=== PATIENT | female | born 1940 | race Caucasian/White ===

== ENCOUNTER 2017-08-11 20:28 | Inpatient (IN) | payer MEDICARE ==
[2017-08-12] MEDS: ALPRAZolam 0.5 MG TAB PO PRN ×3 (01:07→21:22)
[2017-08-12] MEDS: MELATONIN 3 MG TABLET PO SCH ×2 (01:07→21:31)
[2017-08-12] MEDS: methylPREDNISolone SOD SUCCI 125 MG/2 ML VIAL IV SCH ×4 (01:08→23:51)
[2017-08-12] MEDS: IPRATROPIUM-ALBUTEROL 3 ML NEB INHALATION SCH ×6 (01:16→23:07)
[2017-08-12] MEDS: ACETAMINOPHEN TAB 325 MG TAB PO PRN (03:35)
[2017-08-12] MEDS: IPRATROPIUM-ALBUTEROL 3 ML NEB INHALATION PRN (04:48)
[2017-08-12] MEDS: FUROSEMIDE 20 MG TAB PO SCH ×2 (07:56→14:58)
[2017-08-12] MEDS: AZITHROMYCIN 500 MG in SODIUM CHLORIDE 0.9% 250 ML IVPB SCH (07:56)
[2017-08-12 11:41] LABS: Basophils % (A) 0 %; Eosinophils % (A) 0 %; HCT 43.4 % (34.0-46.0); HGB 12.6 gm/dL (11.4-16.0); Hypochromasia Marked; Lymphocytes # (A) 0.3 k/uL (1.0-4.8); Lymphocytes % (A) 3 %; MCH 26.7 pg (25.0-35.0); MCHC 29.1 g/dL (31.0-37.0); MCV 91.8 fL (80.0-100.0); Mean Platelet Volume 7.1; Monocytes # (A) 0.4 k/uL (0-1.0); Monocytes % (A) 4 %; Neutrophils # (A) 10.9 k/uL (1.3-7.7); Neutrophils % (A) 93 %; Platelet Count 286 k/uL (150-450); RBC 4.73 m/uL (3.80-5.40); RDW 12.3 % (11.5-15.5); WBC 11.7 k/uL (3.8-10.6)
[2017-08-12 11:51] LABS: ALT 23 U/L (9-52); AST 18 U/L (14-36); Albumin 3.2 g/dL (3.5-5.0); Alkaline Phosphatase 70 U/L (38-126); Anion Gap 11 mmol/L; Blood Urea Nitrogen 26 mg/dL (7-17); Calcium 8.8 mg/dL (8.4-10.2); Carbon Dioxide 32 mmol/L (22-30); Chloride 98 mmol/L (98-107); Glucose 288 mg/dL (74-99); Potassium 4.2 mmol/L (3.5-5.1); Sodium 141 mmol/L (137-145); Total Bilirubin 0.3 mg/dL (0.2-1.3); Total Protein 5.8 g/dL (6.3-8.2)
[2017-08-12] MEDS: cefTRIAXone IN SWFI 1,000 MG/10 ML SYRINGE IVP SCH (16:28)
--- NOTE | 2017-08-12 16:34 | HP ---
HISTORY AND PHYSICAL DATE OF SERVICE: 08/12/2017. CHIEF COMPLAINT: Chief complaint was difficulty breathing and left arm pain. BRIEF HISTORY: This patient is a 76-year-old female patient with history of severe COPD with previous history of tuberculosis with biapical pulmonary fibrosis, history of CHF, and dementia who presented to [facility] ED with a complaint of difficulty breathing which started about a week ago, but for the past 3 days prior to coming to the ED, she started getting progressively worse. The patient also started having some pain in the left hand. There is no history of injury or falls. The patient denied any fever or chills. She claimed that she felt more short of breath compared to her baseline. She usually uses 2 L of oxygen at home but had been needing 3 to 5 L for the past few days because of shortness of breath. She did use her aerosol treatments at home more frequently, but was not giving her relief. The patient had called her PCP and was prescribed a Z-José Miguel and tapering dose of prednisone about 48 hours prior to coming to the hospital. Patient had not picked it up yet. PAST MEDICAL HISTORY: She has a past medical history significant for: 1. 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 2. Stage IV severe COPD. 3. History of nicotine dependence and tobacco abuse. 4. History of tuberculosis with biapical pulmonary fibrosis. 5. CHF. 6. Dementia. PAST SURGICAL HISTORY: Significant for polypectomy for polyps on throat. FAMILY HISTORY: Significant for a history of diabetes and hypertension in maternal family. Father is and had history of TB. SOCIAL HISTORY: Patient lives with his family. Has a 60 pack-year history of smoking. Continues to smoke. She denies history of alcohol or drug abuse. MEDICATIONS: The patient takes: 1. Melatonin 3 mg p.o. q.h.s. 2. Magnesium oxide 400 mg p.o. daily. 3. DuoNeb. 4. Lasix 20 mg b.i.d. 5. Aricept 5 mg q.h.s. 6. Xanax 0.5 mg p.o. t.i.d. 7. Tylenol 650 mg q.6 hours p.r.n. ALLERGIES: She has no known drug allergies. REVIEW OF SYSTEMS: CONSTITUTIONAL: Patient denies any fever or chills. There has been increased weakness and fatigue. HEENT: No vision changes. No hearing loss. No sore throat. RESPIRATORY SYSTEM: Does give history of difficulty breathing and shortness of breath as per HPI. CARDIAC: Patient does give history of occasional chest pain. GASTROINTESTINAL: Patient denies any nausea, vomiting or diarrhea. No constipation. GENITOURINARY: No dysuria or hematuria. MUSCULOSKELETAL: No acute muscle aches. SKIN: No rashes or pigmentation. NEUROLOGICAL SYSTEM: Denies dizziness, lightheadedness, or migraine headaches. PSYCHOLOGICAL: No suicidal or homicidal ideation. ENDOCRINE: No polyuria or polydipsia. LYMPHATIC SYSTEM: No lymphadenopathy. Rest of 14-point review of system is unremarkable. PHYSICAL EXAMINATION: The patient is in mild respiratory distress, especially when she tries to talk to me. VITAL SIGNS: At the time of presenting to the ED, temperature was 97.3, pulse 91, respiration 28, O2 saturation 100% on 3 L. Blood pressure 109/66. HEENT: Atraumatic, normocephalic. Pupils equal and reactive to light. Extraocular movements intact. Buccal mucosa is fair. NECK: Supple. No goiter or lymphadenopathy. JVD is negative. No carotid bruit heard. LUNGS: Diffuse bilateral wheezing with decreased breath sounds and scattered rhonchi and some accessory muscle use. CARDIOVASCULAR SYSTEM: Patient's heart is regular rate and rhythm without any murmurs or gallop rhythm. ABDOMEN/GI: Abdomen is soft, nontender, nondistended. No guarding or rigidity. Bowel sounds positive. GENITOURINARY: Deferred. EXTREMITIES: No edema, clubbing, cyanosis. Patient has full range of motion. NEUROLOGICAL EXAMINATION: Patient is awake, alert, oriented x3. She has no gross motor or sensory deficit. Moves all 4 extremities. MUSCULOSKELETAL: Patient has no swelling or effusions of the joints and no muscle deformities. Patient moves all 4 extremities. Skin is without rashes or pigmentation. PSYCHOLOGICAL EXAM: The patient has normal affect and mood. LABS AND X-RAY DATA: EKG shows a sinus rhythm with atrial premature complexes, slight atrial enlargement. Chest x-ray shows chronic with bilateral infiltrate. Labs: CBC white blood count of 9.8, hemoglobin 15.1, hematocrit 50.8, and platelet count of 278. Influenza A and B are negative. BNP of 684. Troponin 0.05. Lactic acid of 1.3. Chemical profile sodium 142, potassium 4.0, chloride 93, bicarb 44, BUN of 21, creatinine 0.7. Glucose 102. Liver enzymes, AST, ALT are unremarkable. ASSESSMENT: 1. Acute hypoxemic respiratory failure. 2. Severe acute exacerbation chronic obstructive pulmonary disease. 3. Community-acquired pneumonia. PLAN: Plan is to admit the patient to general medical floor with telemetry. We will start patient on IV Solu-Medrol, nebulizer treatments with DuoNeb q.4 while awake. Start patient on IV Zithromax and Rocephin 1 gram daily. Will monitor cardiac enzymes. O2 of 2 L per nasal cannula. The patient's influenza A and B are negative. The patient does show some clinical improvement. Will consult Pulmonary. The patient worsens, we will give symptomatic treatment for pneumonia. Resume all home medications. ABGs if breathing status worsens and also blood culture and sputum cultures, will rule out for atypical organisms. DVT prophylaxis with subcu heparin and SCDs. MMTUCKER / PAYTONN: [id number] /
[2017-08-12 17:11] LABS: Basophils % (A) 0 %; Eosinophils % (A) 0 %; HGB 13.7 gm/dL (11.4-16.0); Hypochromasia Marked; Lymphocytes # (A) 0.6 k/uL (1.0-4.8); Lymphocytes % (A) 3 %; MCHC 29.7 g/dL (31.0-37.0); MCV 90.9 fL (80.0-100.0); Mean Platelet Volume 6.8; Monocytes # (A) 0.7 k/uL (0-1.0); Monocytes % (A) 4 %; Neutrophils # (A) 16.5 k/uL (1.3-7.7); Neutrophils % (A) 92 %; Platelet Count 300 k/uL (150-450); RBC 5.05 m/uL (3.80-5.40); RDW 12.4 % (11.5-15.5); WBC 17.8 k/uL (3.8-10.6)
[2017-08-12 17:20] LABS: Anion Gap 9 mmol/L; Blood Urea Nitrogen 26 mg/dL (7-17); Calcium 9.2 mg/dL (8.4-10.2); Carbon Dioxide 34 mmol/L (22-30); Chloride 98 mmol/L (98-107); Glucose 126 mg/dL (74-99); Potassium 4.1 mmol/L (3.5-5.1); Sodium 141 mmol/L (137-145)
[2017-08-12] MEDS: BUDESONIDE 0.5 MG/2 ML NEBU INHALATION SCH (20:26)
[2017-08-12] MEDS: FORMOTEROL FUMARATE 20 MCG/2 ML NEBU INHALATION SCH (20:26)
[2017-08-12] MEDS: DONEPEZIL 5 MG TAB PO SCH (21:31)
[2017-08-12] MEDS ORDERED: LORazepam 2 MG/ML INJ IV STA (23:35)
[2017-08-13] MEDS: IPRATROPIUM-ALBUTEROL 3 ML NEB INHALATION SCH ×5 (04:23→20:23)
[2017-08-13] MEDS: methylPREDNISolone SOD SUCCI 125 MG/2 ML VIAL IV SCH ×4 (05:36→23:30)
[2017-08-13] MEDS: MAGNESIUM OXIDE 400 MG TAB PO SCH (07:41)
[2017-08-13] MEDS: AZITHROMYCIN 500 MG in SODIUM CHLORIDE 0.9% 250 ML IVPB SCH (07:41)
[2017-08-13] MEDS: FUROSEMIDE 20 MG TAB PO SCH ×2 (07:41→15:33)
[2017-08-13] MEDS: ALPRAZolam 0.5 MG TAB PO PRN ×2 (07:41→17:59)
[2017-08-13] MEDS: cefTRIAXone IN SWFI 1,000 MG/10 ML SYRINGE IVP SCH (07:41)
[2017-08-13] MEDS: BUDESONIDE 0.5 MG/2 ML NEBU INHALATION SCH ×2 (08:53→20:23)
[2017-08-13] MEDS: FORMOTEROL FUMARATE 20 MCG/2 ML NEBU INHALATION SCH ×2 (08:54→20:23)
--- NOTE | 2017-08-13 20:30 | PN ---
PROGRESS NOTE DATE OF SERVICE: 08/13/2017 The patient is sitting up in bed. She claims her breathing is a lot better than yesterday. VITAL SIGNS: Temperature of 98, pulse of 119, respirations 24, blood pressure 121/50, O2 saturation 97% on 3.5 L. HEENT: Atraumatic, normocephalic. Pupils equal, round and reactive to light. Extraocular movements intact. Buccal mucosa is fair. Neck is supple. No goiter, lymphadenopathy. JVD is negative. No carotid bruit heard. Lungs markedly decreased breath sounds with scattered wheezing and rhonchi. Heart is tachycardic, regular rhythm. Abdomen is soft, nontender, nondistended. Bowel sounds positive. EXTREMITIES: No edema, clubbing or cyanosis. NEUROLOGICAL EXAMINATION: Cranial nerves 2-12 grossly intact. No gross motor or sensory deficit. LAB: CBC: White blood count 17.8, hemoglobin 10.7, hematocrit 46, and platelet count of 300. Chemical profile: Sodium 141, potassium 4.1, chloride 98, bicarb 34, BUN 26, creatinine 0.8. ASSESSMENT: 1. Acute hypoxemic respiratory failure. 2. Severe acute exacerbation of chronic obstructive pulmonary disease. 3. Community-acquired pneumonia. 4. Leukocytosis. 5. Mild renal injury. PLAN: Continue the patient on IV steroids, IV Zithromax and Rocephin. Continue nebulizer treatments with steroids and with bronchodilators. The patient is showing signs of improvement. Sputum and blood cultures have been negative so far. We will continue current plan of care. The patient is showing slow improvement. Possible discharge in next 24 to 48 hours. MMODL / IJN: [id number] /
[2017-08-13] MEDS: DONEPEZIL 5 MG TAB PO SCH (20:49)
[2017-08-13] MEDS: MELATONIN 3 MG TABLET PO SCH (20:49)
[2017-08-14] MEDS: IPRATROPIUM-ALBUTEROL 3 ML NEB INHALATION SCH ×7 (00:12→23:24)
[2017-08-14 04:50] LABS: Mycoplasma IgM Antibody 0.39 INDEX (<=0.90)
[2017-08-14] MEDS: methylPREDNISolone SOD SUCCI 125 MG/2 ML VIAL IV SCH ×3 (06:06→17:46)
[2017-08-14 07:29] LABS: Glucose,Whole Blood 134 mg/dL (75-99)
[2017-08-14] MEDS: BUDESONIDE 0.5 MG/2 ML NEBU INHALATION SCH (07:45)
[2017-08-14] MEDS: FORMOTEROL FUMARATE 20 MCG/2 ML NEBU INHALATION SCH ×2 (07:45→20:24)
[2017-08-14] MEDS: INSULIN ASPART 100 UNIT/ML 1 ML 10 ML VIAL SQ SCH ×4 (08:14→23:05)
[2017-08-14] MEDS: cefTRIAXone IN SWFI 1,000 MG/10 ML SYRINGE IVP SCH (08:15)
[2017-08-14] MEDS: ALPRAZolam 0.5 MG TAB PO PRN ×2 (08:15→17:15)
[2017-08-14] MEDS: MAGNESIUM OXIDE 400 MG TAB PO SCH (08:16)
[2017-08-14] MEDS: FUROSEMIDE 20 MG TAB PO SCH ×2 (08:16→16:33)
[2017-08-14] MEDS: AZITHROMYCIN 500 MG in SODIUM CHLORIDE 0.9% 250 ML IVPB SCH (08:16)
[2017-08-14 09:16] LABS: Basophils % (A) 0 %; Eosinophils % (A) 0 %; HCT 45.4 % (34.0-46.0); HGB 13.2 gm/dL (11.4-16.0); Hypochromasia Moderate; Lymphocytes # (A) 0.6 k/uL (1.0-4.8); Lymphocytes % (A) 3 %; MCH 26.5 pg (25.0-35.0); MCHC 29.2 g/dL (31.0-37.0); MCV 90.8 fL (80.0-100.0); Mean Platelet Volume 6.8; Monocytes # (A) 0.7 k/uL (0-1.0); Monocytes % (A) 3 %; Neutrophils % (A) 93 %; Platelet Count 340 k/uL (150-450); RBC 4.99 m/uL (3.80-5.40); RDW 12.5 % (11.5-15.5); WBC 20.5 k/uL (3.8-10.6)
[2017-08-14 09:28] LABS: Blood Urea Nitrogen 30 mg/dL (7-17); Calcium 9.5 mg/dL (8.4-10.2); Chloride 93 mmol/L (98-107); Glucose 129 mg/dL (74-99); Potassium 4.5 mmol/L (3.5-5.1); Sodium 143 mmol/L (137-145)
[2017-08-14 09:34] LABS: Anion Gap 9 mmol/L
[2017-08-14 09:50] LABS: Carbon Dioxide 41 mmol/L (22-30)
--- NOTE | 2017-08-14 11:53 | XR ---
EXAMINATION TYPE: XR chest 2V DATE OF EXAM: 08/14/2017 COMPARISON: 08/25/2016, 07/07/2017, 08/11/2017 INDICATION: Hypoxia COPD TECHNIQUE: Frontal and lateral views of the chest are obtained. FINDINGS: The heart size is normal. The pulmonary vasculature is normal. Bilateral apical thickening with increased lung markings are through the upper lung vargas bilaterall y. This appearance is stable from June 2017. Finding is also stable from 08/11/2017. There is incre ased retrosternal airspace and slight increase in AP diameter and mild flattening the diaphragms comp atible with edematous change.. IMPRESSION: 1. Chronic bilateral upper lobe lung findings
[2017-08-14 12:02] LABS: Glucose,Whole Blood 129 mg/dL (75-99)
[2017-08-14] MEDS: NICOTINE 21MG/24HR PATCH TRANSDERM SCH (13:14)
--- NOTE | 2017-08-14 13:50 | P.CNPUL ---
History of Present Illness Consult date: 08/14/17 Reason for consult: dyspnea, cough, COPD, hypoxemia Chief complaint: Shortness of breath History of present illness: Consult dated 08/14/2017 This is a 76-year-old female with a history of COPD exacerbation. The patient was seen by the hospitalist. She apparently was transferred down from [facility]. She was here in the emergency department for a couple of days. She barely came in with a issue of severe COPD exacerbation. She has a previous history of tuberculosis biapical pulmonary fibrosis CHF dementia who presented with difficulty breathing coughing wheezing shortness of breath. No fever no chills. Bring up only small amount of phlegm. The patient was treated there in the standard fashion not getting any better and transferred down. The patient still quite short of breath. We are seeing her today, she was just ready to go for an x-ray. She appears to look like someone with emphysema. Chest x-ray showed evidence dose of COPD/emphysematous changes. There was no acute infiltrate. The patient was quite tachypneic and dyspneic. She had significant conversational dyspnea and was not a particularly good historian. Review of Systems A 12 point review of system was positive mostly for shortness of breath although she did have a component of cough minimal phlegm production chest tightness wheezing. No fever no chills. No chest pain or chest discomfort. Past Medical History Past Medical History: Heart Failure, COPD Additional Past Medical History / Comment(s): 09/[address] of lung ; COPD Stage 4 Gold; tuberculosis with biapical fibrosis/scarring History of Any Multi-Drug Resistant Organisms: None Reported Additional Past Surgical History / Comment(s): Polyps on throat removed Past Anesthesia/Blood Transfusion Reactions: No Reported Reaction Additional Psychological History / Comment(s): Patient has history of dementia, is currently oriented x 3 without confusion Smoking Status: Current every day smoker Past Alcohol Use History: None Reported Past Drug Use History: None Reported - Past Family History Mother Family Medical History: Diabetes Mellitus, Hypertension Father Additional Family Medical History / Comment(s): Father had tuberculosis, unsure if he of TB Medications and Allergies Home Medications Medication Instructions Recorded Confirmed Type ALPRAZolam [Xanax] 0.5 mg PO TID PRN 08/12/17 08/12/17 History Budesonide [Pulmicort] 0.5 mg INHALATION RT-BID 08/12/17 08/12/17 History Donepezil [Aricept] 5 mg PO HS 08/12/17 08/12/17 History Formoterol Fumarate [Perforomist] 20 mcg INHALATION RT-BID 08/12/17 08/12/17 History Furosemide [Lasix] 40 mg PO DAILY 08/12/17 08/12/17 History Ipratropium-Albuterol Nebulize 3 ml INHALATION RT-QID 08/12/17 08/12/17 History [Duoneb 0.5 mg-3 mg/3 ml Soln] Magnesium Oxide [Magnesium Oxide] 400 mg PO DAILY 08/12/17 08/12/17 History Melatonin 3 mg PO HS 08/12/17 08/12/17 History Allergies Allergy/AdvReac Type Severity Reaction Status Date / Time No Known Allergies Allergy Verified 08/12/17 11:05 Physical Exam Osteopathic Statement: *. No significant issues noted on an osteopathic structural exam other than those noted in the History and Physical/Consult. Vitals: Vital Signs Temp Pulse Pulse Resp BP Pulse Ox 08/14/17 11:24 92 08/14/17 11:13 90 08/14/17 08:06 89 08/14/17 07:56 88 08/14/17 07:55 88 08/14/17 07:45 88 08/14/17 05:54 97.0 F L 87 17 149/72 99 08/14/17 00:29 92 08/14/17 00:16 92 08/13/17 23:00 97.5 F L 108 H 17 147/70 95 08/13/17 20:43 116 H 08/13/17 20:37 116 H 08/13/17 20:24 115 H 08/13/17 17:36 102 H 08/13/17 17:22 102 H 08/13/17 15:00 98.1 F 119 H 24 121/50 93 L Intake and Output 08/13/17 08/14/17 08/14/17 22:59 06:59 14:59 Intake Total 240 Balance 240 Intake: Oral 240 Other: Voiding Method Bedside Commode # Voids 2 3 Weight 42 kg Mild to moderate respiratory distress distress, oriented 2, without audible wheezing. HEENT examination is grossly unremarkable. Mucous membranes are moist. No oral lesions. Neck supple. Full range of motion. No adenopathy thyromegaly or neck vein distention. Cardiovascular examination reveals regular rhythm rate. S1-S2 normal. No S3 or S4. No discernible murmur noted. Heart sounds are distant. Lungs reveal diffuse bilateral rhonchi and wheezes. Breath sounds are diminished. There is prolongation on forced maneuver. Abdomen soft bowel sounds are heard. No masses or tenderness. Extremities are intact. No cyanosis clubbing or edema. Skin is without rash or lesion. Neurologic examination is brief but nonfocal. Results - Laboratory Findings CBC and BMP: 08/14/17 07:54 08/14/17 07:54 Abnormal lab findings: Abnormal Labs 08/12/17 08/12/17 08/12/17 11:15 11:15 16:56 WBC 11.7 H 17.8 H MCHC 29.1 L 29.7 L Neutrophils # 10.9 H 16.5 H Lymphocytes # 0.3 L 0.6 L Chloride Carbon Dioxide 32 H BUN 26 H Glucose 288 H POC Glucose (mg/dL) Total Protein 5.8 L Albumin 3.2 L 08/12/17 08/14/17 08/14/17 16:56 07:26 07:54 WBC 20.5 H MCHC 29.2 L Neutrophils # 19.0 H Lymphocytes # 0.6 L Chloride Carbon Dioxide 34 H BUN 26 H Glucose 126 H POC Glucose (mg/dL) 134 H Total Protein Albumin 08/14/17 08/14/17 07:54 11:58 WBC MCHC Neutrophils # Lymphocytes # Chloride 93 L Carbon Dioxide 41 H* BUN 30 H Glucose 129 H POC Glucose (mg/dL) 129 H Total Protein Albumin - Diagnostic Findings Chest x-ray: image reviewed (X-rays labs and medications are reviewed.) Assessment and Plan Assessment: Assessment Hypoxemic respiratory failure secondary to COPD exacerbation History of pulmonary fibrosis History of heart failure History of dementia Previous history of pulmonary tuberculosis Chronic nicotine dependence with ongoing tobacco use Stage IV chronic lung disease Plan: Plan dated 08/14/2017 The patient's medications are reviewed. Labs are reviewed. X-ray shows only some emphysematous changes. We'll make sure that she is on a short acting beta agonist, short acting muscarinic antagonist, and inhaled corticosteroid, a long- acting beta agonist, and systemic corticosteroids. Likely also make sure she is on some sort of oral antibiotic and a nicotine patch. Additional recommendations and suggestions are forthcoming. Prognosis is poor. Time with Patient: Greater than 30
[2017-08-14 17:10] LABS: Hemoglobin A1C 5.9 % (4.0-6.0)
[2017-08-14] MEDS: IPRATROPIUM-ALBUTEROL 3 ML NEB INHALATION PRN (17:27)
[2017-08-14 17:30] LABS: Glucose,Whole Blood 183 mg/dL (75-99)
[2017-08-14] MEDS ORDERED: DILTIAZEM 5 MG/ML 5 ML VIAL IVP STA (18:49)
[2017-08-14] MEDS ORDERED: HEPARIN SODIUM,PORCINE 5,000 UNIT/ML 1 ML VIAL IV ONE (19:41)
[2017-08-14] MEDS ORDERED: HEPARIN SOD,PORK IN 0.45% NACL 25,000 UNIT in 0.45% NACL 1 500ML.BAG IV SCH (19:45)
[2017-08-14 20:13] LABS: Basophils % (A) 0 %; Eosinophils # (A) 0.1 k/uL (0-0.7); Eosinophils % (A) 0 %; HCT 46.8 % (34.0-46.0); Hypochromasia Moderate; Lymphocytes # (A) 0.4 k/uL (1.0-4.8); Lymphocytes % (A) 2 %; MCH 27.3 pg (25.0-35.0); Mean Platelet Volume 6.8; Monocytes % (A) 5 %; Neutrophils # (A) 18.5 k/uL (1.3-7.7); Neutrophils % (A) 92 %; Platelet Count 355 k/uL (150-450); RBC 5.14 m/uL (3.80-5.40); RDW 12.7 % (11.5-15.5)
[2017-08-14] MEDS: BUDESONIDE 1 MG/2 ML NEBU INHALATION SCH (20:24)
[2017-08-14 20:35] LABS: Prothrombin Time 9.7 sec (9.0-12.0)
[2017-08-14] MEDS: DILTIAZEM 125 MG in SODIUM CHLORIDE 0.9% 100 ML IV SCH (20:36)
[2017-08-14 20:37] LABS: Partial Thromboplastin Time 20.6 sec (22.0-30.0)
[2017-08-14 22:17] LABS: Glucose,Whole Blood 118 mg/dL (75-99)
[2017-08-14] MEDS: MELATONIN 3 MG TABLET PO SCH (23:01)
[2017-08-14] MEDS: LORazepam 2 MG/ML INJ IV PRN (23:01)
[2017-08-14] MEDS: DONEPEZIL 5 MG TAB PO SCH (23:01)
[2017-08-15 03:22] LABS: Basophils % (A) 0 %; Eosinophils % (A) 0 %; HCT 45.1 % (34.0-46.0); Hypochromasia Marked; Lymphocytes # (A) 0.7 k/uL (1.0-4.8); Lymphocytes % (A) 4 %; MCH 26.4 pg (25.0-35.0); MCHC 28.8 g/dL (31.0-37.0); MCV 91.5 fL (80.0-100.0); Mean Platelet Volume 6.6; Monocytes # (A) 0.8 k/uL (0-1.0); Monocytes % (A) 5 %; Neutrophils # (A) 13.8 k/uL (1.3-7.7); Neutrophils % (A) 90 %; Platelet Count 327 k/uL (150-450); RBC 4.93 m/uL (3.80-5.40); RDW 12.5 % (11.5-15.5); WBC 15.3 k/uL (3.8-10.6)
[2017-08-15] MEDS: HEPARIN SODIUM,PORCINE 5,000 UNIT/ML 1 ML VIAL IV PRN ×2 (03:47→10:41)
[2017-08-15] MEDS: AMOXIC-POT CLAV 875-125MG 1 EACH TAB PO SCH ×3 (03:53→21:12)
[2017-08-15] MEDS: methylPREDNISolone SOD SUCCI 125 MG/2 ML VIAL IV SCH ×5 (03:59→22:59)
[2017-08-15] MEDS: IPRATROPIUM-ALBUTEROL 3 ML NEB INHALATION SCH ×5 (04:22→21:16)
[2017-08-15] MEDS: DILTIAZEM 125 MG in SODIUM CHLORIDE 0.9% 100 ML IV SCH (05:58)
[2017-08-15 06:08] LABS: Glucose,Whole Blood 152 mg/dL (75-99)
[2017-08-15] MEDS: INSULIN ASPART 100 UNIT/ML 1 ML 10 ML VIAL SQ SCH ×4 (06:08→23:00)
[2017-08-15] MEDS: FORMOTEROL FUMARATE 20 MCG/2 ML NEBU INHALATION SCH ×2 (07:54→21:16)
[2017-08-15] MEDS: BUDESONIDE 1 MG/2 ML NEBU INHALATION SCH ×2 (07:55→21:16)
[2017-08-15] MEDS: NICOTINE 21MG/24HR PATCH TRANSDERM SCH (08:07)
[2017-08-15] MEDS: LORazepam 2 MG/ML INJ IV PRN (08:07)
[2017-08-15] MEDS ORDERED: AZITHROMYCIN 500 MG TAB PO SCH (09:00)
[2017-08-15] MEDS: FUROSEMIDE 20 MG TAB PO SCH ×2 (10:41→17:29)
[2017-08-15] MEDS: MAGNESIUM OXIDE 400 MG TAB PO SCH (10:41)
--- NOTE | 2017-08-15 12:05 | P.PN ---
Subjective Progress Note Date: 08/15/17 Principal diagnosis: Acute hypoxic respiratory failure secondary to COPD exacerbation Consult dated 08/14/2017 This is a 76-year-old female with a history of COPD exacerbation. The patient was seen by the hospitalist. She apparently was transferred down from [facility]. She was here in the emergency department for a couple of days. She barely came in with a issue of severe COPD exacerbation. She has a previous history of tuberculosis biapical pulmonary fibrosis CHF dementia who presented with difficulty breathing coughing wheezing shortness of breath. No fever no chills. Bring up only small amount of phlegm. The patient was treated there in the standard fashion not getting any better and transferred down. The patient still quite short of breath. We are seeing her today, she was just ready to go for an x-ray. She appears to look like someone with emphysema. Chest x-ray showed evidence dose of COPD/emphysematous changes. There was no acute infiltrate. The patient was quite tachypneic and dyspneic. She had significant conversational dyspnea and was not a particularly good historian. On 08/15/2017 patient seen again in follow-up. She remains on BiPAP with pressures at 10/5, and FiO2 of 40%. She is quite anxious at times, but for the most part she is tolerating the BiPAP fairly well. She is not able to tolerate being off of it for very long, she desaturates, becomes very tachycardic and tachypnec. She remains afebrile, hemodynamically stable. Lung sounds are positive for diminished breath sounds. She has a loose congested nonproductive cough. Today's lab work shows WBC of 15.3, hemoglobin is 13. She continues on IV steroids, Augmentin, oral Lasix, Pulmicort and Perforomist, and DuoNeb nebulized treatments. Objective - Vital Signs Vital signs: Vital Signs Temp 96.9 F L 08/15/17 08:00 Pulse 108 H 08/15/17 11:14 Resp 20 08/15/17 11:14 BP 126/67 08/15/17 11:13 Pulse Ox 99 08/15/17 11:13 Intake & Output 08/14/17 08/15/17 08/15/17 18:59 06:59 18:59 Intake Total 690 160.027 87.57 Output Total 400 500 Balance 290 -339.973 87.57 Weight 42 kg 61 kg Intake: Intake, IV Titration 250 160.027 87.57 Amount Azithromycin 500 mg In 250 Sodium Chloride 0.9% 250 ml @ 125 mls/hr IVPB DAILY JESSENIA Rx#:[id number] Diltiazem 125 mg In 93.667 Sodium Chloride 0.9% 100 ml @ 10 MG/HR 10 mls/hr IV .[id number] JESSENIA Rx#: [id number] Heparin Sod,Pork in 0.45% 66.36 87.57 NaCl 25,000 unit In 0.45 % NaCl 1 500ml.bag @ 12 UNITS/KG/HR 10.08 mls/hr IV .Q24H JESSENIA Rx#: [id number] Oral 440 Output: Urine 400 500 Other: Voiding Method Bedside Commode Bedside Commode Bedpan # Voids 3 0 # Bowel Movements 1 - Exam GENERAL EXAM: Alert, pleasant, slightly restless 76-year-old thin white female on BiPAP support, fairly comfortable HEAD: Normocephalic/atraumatic. EYES: Normal reaction of pupils, equal size. Conjunctiva pink, sclera white. NOSE: Clear with pink turbinates. THROAT: No erythema or exudates. NECK: No masses, no JVD, no thyroid enlargement, no adenopathy. CHEST: No chest wall deformity. Symmetrical expansion. LUNGS: Diminished breath sounds bilaterally, no rhonchi, or wheezes noted. CVS: Regular rate and rhythm, normal S1 and S2, no gallops, no murmurs, no rubs ABDOMEN: Soft, nontender. No hepatosplenomegaly, normal bowel sounds, no guarding or rigidity. EXTREMITIES: No clubbing, no edema, no cyanosis, 2+ pulses and upper and lower extremities. MUSCULOSKELETAL: Muscle strength and tone normal. SPINE: No scoliosis or deformity SKIN: No rashes CENTRAL NERVOUS SYSTEM: Alert and oriented -3. No focal deficits, tone is normal in all 4 extremities. PSYCHIATRIC: Alert and oriented -3. Appropriate affect. Intact judgment and insight. - Labs CBC & Chem 7: 08/15/17 02:40 08/14/17 07:54 Labs: Abnormal Lab Results - Last 24 Hours (Table) 08/14/17 08/14/17 08/14/17 Range/Units 11:58 17:27 19:53 WBC 20.0 H (3.8-10.6) k/uL Hct 46.8 H (34.0-46.0) % MCHC 30.0 L (31.0-37.0) g/dL Neutrophils # 18.5 H (1.3-7.7) k/uL Lymphocytes # 0.4 L (1.0-4.8) k/uL APTT (22.0-30.0) sec POC Glucose (mg/dL) 129 H 183 H (75-99) mg/dL 08/14/17 08/14/17 08/15/17 Range/Units 19:53 21:56 02:40 WBC 15.3 H (3.8-10.6) k/uL Hct (34.0-46.0) % MCHC 28.8 L (31.0-37.0) g/dL Neutrophils # 13.8 H (1.3-7.7) k/uL Lymphocytes # 0.7 L (1.0-4.8) k/uL APTT 20.6 L (22.0-30.0) sec POC Glucose (mg/dL) 118 H (75-99) mg/dL 08/15/17 Range/Units 06:05 WBC (3.8-10.6) k/uL Hct (34.0-46.0) % MCHC (31.0-37.0) g/dL Neutrophils # (1.3-7.7) k/uL Lymphocytes # (1.0-4.8) k/uL APTT (22.0-30.0) sec POC Glucose (mg/dL) 152 H (75-99) mg/dL Microbiology - Last 24 Hours (Table) 08/12/17 17:10 Blood Culture - Preliminary Blood No Growth after 48 hours 08/12/17 16:56 Blood Culture - Preliminary Blood No Growth after 48 hours Assessment and Plan Plan: Assessment: #1. Acute hypoxic respiratory failure secondary to COPD exacerbation #2. Chronic hypercapnic respiratory failure secondary to advanced COPD #3. History of pulmonary fibrosis #4. History of CHF, unspecified #5. History of dementia #6. History of nicotine dependence and tobacco abuse #. Previous history of pulmonary tuberculosis Plan: Continue BiPAP support, patient is not tolerating nasal cannula trials, becomes very tachypneic, and tachycardic. Continue IV steroids, continue DuoNeb, continue Pulmicort and Perforomist, continue Augmentin. I performed a history & physical examination of the patient and discussed their management with my nurse practitioner, Kimmy Evans. I reviewed the nurse practitioner's note and agree with the documented findings and plan of care. Lung sounds are positive for diminished lung sounds. The findings and the impression was discussed with the patient. I attest to the documentation by the nurse practitioner. Time with Patient: Less than 30
[2017-08-15 12:06] LABS: Glucose,Whole Blood 195 mg/dL (75-99)
[2017-08-15] MEDS: APIXABAN 2.5 MG TABLET PO SCH ×2 (12:48→21:13)
--- NOTE | 2017-08-15 14:39 | P.CRDCN ---
History of Present Illness Consult date: 08/15/17 Requesting physician: Gavi Russell Consult reason: atrial fibrillation Chief complaint: Shortness of breath and palpitations History of present illness: This is a 76-year-old female with history of severe COPD, pulmonary fibrosis, tuberculosis, congestive heart failure, nicotine dependence, dementia , who was transferred here from [facility]. According to the patient, she went to the hospital there because of progressively worsening shortness of breath. Patient also states that she's been feeling her heart racing fast and at times experiencing discomfort in her chest. She was being treated as an outpatient for a possible bronchitis or pneumonia and was initiated on Zithromax and prednisone as an outpatient. EKG performed at [facility] on admission there showed a normal sinus rhythm with PACs. Troponins there 0.029, 0.025. Lactic acid 1.3 BNP 684. White blood cell count 9.8, hemoglobin 15.1, platelet count 278. Influenza A and B were negative area sodium 142, potassium 4.0, BUN 21, creatinine 0.7. Magnesium 2.4. Blood pressure [facility] with afebrile there x-ray performed in [place] revealed chronic emphysema changes with possible infiltrates bilaterally. Initial EKG performed on arrival here shows atrial fibrillation with a rapid ventricular response, subsequent EKG persists to show atrial fibrillation. Currently in normal sinus rhythm. According to the patient she has never been told in the past to have any irregularity of heartbeat. Blood pressure here 125/60, heart rate 100, 100 % on BiPAP. Past Medical History Past Medical History: Heart Failure, COPD Additional Past Medical History / Comment(s): 09/[address] of lung ; COPD Stage 4 Gold; tuberculosis with biapical fibrosis/scarring History of Any Multi-Drug Resistant Organisms: None Reported Additional Past Surgical History / Comment(s): Polyps on throat removed Past Anesthesia/Blood Transfusion Reactions: No Reported Reaction Additional Psychological History / Comment(s): Patient has history of dementia, is currently oriented x 3 without confusion Smoking Status: Current every day smoker Past Alcohol Use History: None Reported Past Drug Use History: None Reported - Past Family History Mother Family Medical History: Diabetes Mellitus, Hypertension Father Additional Family Medical History / Comment(s): Father had tuberculosis, unsure if he of TB Medications and Allergies Home Medications Medication Instructions Recorded Confirmed Type ALPRAZolam [Xanax] 0.5 mg PO TID PRN 08/12/17 08/12/17 History Budesonide [Pulmicort] 0.5 mg INHALATION RT-BID 08/12/17 08/12/17 History Donepezil [Aricept] 5 mg PO HS 08/12/17 08/12/17 History Formoterol Fumarate [Perforomist] 20 mcg INHALATION RT-BID 08/12/17 08/12/17 History Furosemide [Lasix] 40 mg PO DAILY 08/12/17 08/12/17 History Ipratropium-Albuterol Nebulize 3 ml INHALATION RT-QID 08/12/17 08/12/17 History [Duoneb 0.5 mg-3 mg/3 ml Soln] Magnesium Oxide [Magnesium Oxide] 400 mg PO DAILY 08/12/17 08/12/17 History Melatonin 3 mg PO HS 08/12/17 08/12/17 History Allergies Allergy/AdvReac Type Severity Reaction Status Date / Time No Known Allergies Allergy Verified 08/12/17 11:05 Physical Exam Vitals: Vital Signs Temp Pulse Pulse Resp BP BP Pulse Ox 08/15/17 08:16 112 H 08/15/17 08:07 108 H 08/15/17 08:05 108 H 08/15/17 08:00 96.9 F L 103 H 22 125/60 100 08/15/17 07:59 104 H 08/15/17 04:33 110 H 08/15/17 04:26 110 H 08/15/17 03:56 107 H 32 H 131/84 08/15/17 00:00 107 H 32 H 08/14/17 23:00 77 39 H 134/70 08/14/17 17:39 116 H 08/14/17 17:27 116 H 22 08/14/17 15:30 92 08/14/17 15:20 92 20 08/14/17 15:00 97.8 F 104 H 22 163/80 97 08/14/17 11:24 92 08/14/17 11:13 90 Intake and Output 08/14/17 08/15/17 08/15/17 22:59 06:59 14:59 Intake Total 160.027 Output Total 400 500 Balance -400 -339.973 Intake: Intake, IV Titration 160.027 Amount Diltiazem 125 mg In 93.667 Sodium Chloride 0.9% 100 ml @ 10 MG/HR 10 mls/hr IV .[id number] JESSENIA Rx#: [id number] Heparin Sod,Pork in 0.45% 66.36 NaCl 25,000 unit In 0.45 % NaCl 1 500ml.bag @ 12 UNITS/KG/HR 10.08 mls/hr IV .Q24H JESSENIA Rx#: [id number] Output: Urine 400 500 Other: Voiding Method Bedside Commode Bedside Commode Bedpan # Voids 1 0 # Bowel Movements 1 Weight 42 kg 61 kg PHYSICAL EXAMINATION: HEENT: Head is atraumatic, normocephalic. Pupils equal, round. Neck is supple. There is no elevated jugular venous pressure. HEART EXAMINATION: Heart S1 and S2 irregular irregular CHEST EXAMINATION: nLungs reveal scattered coarse wheezing throughout with decreased air exchange throughout. ABDOMEN: Soft, nontender. Bowel sounds are heard. No organomegaly noted. EXTREMITIES: 2+ peripheral pulses with no evidence of peripheral edema and no calf tenderness noted. NEUROLOGIC patient is awake, alert and oriented -2. . Results 08/15/17 02:40 08/14/17 07:54 Coagulation 08/14/17 08/15/17 08/15/17 Range/Units 19:53 01:28 02:40 PT 9.7 (9.0-12.0) sec APTT 20.6 L 23.7 23.1 (22.0-30.0) sec CBC 08/14/17 08/15/17 Range/Units 19:53 02:40 WBC 20.0 H 15.3 H (3.8-10.6) k/uL RBC 5.14 4.93 (3.80-5.40) m/uL Hgb 14.0 13.0 (11.4-16.0) gm/dL Hct 46.8 H 45.1 (34.0-46.0) % Plt Count 355 327 (150-450) k/uL Current Medications Generic Name Dose Route Start Last Admin Trade Name Freq PRN Reason Stop Dose Admin Acetaminophen 650 mg 08/12/17 02:41 08/12/17 03:35 Tylenol Tab PO 650 mg Q6HR PRN Administration Fever and/ or Pain Albuterol/Ipratropium 3 ml 08/12/17 04:00 08/15/17 07:54 Duoneb 0.5 Mg-3 Mg/3 Ml Soln INHALATION 3 ml RT-Q4H JESSENIA Administration Albuterol/Ipratropium 3 ml 08/12/17 01:20 08/14/17 17:27 Duoneb 0.5 Mg-3 Mg/3 Ml Soln INHALATION 3 ml RT-Q2H PRN Administration Shortness Of Breath Or Wheezing Alprazolam 0.5 mg 08/12/17 00:51 08/14/17 17:15 Xanax PO 0.5 mg TID PRN Administration Anxiety Amoxicillin/Clavulanate Potassium 1 each 08/14/17 21:00 08/15/17 03:53 Augmentin 875-125 PO 1 each Q12HR JESSENIA Administration Budesonide 1 mg 08/14/17 20:00 08/15/17 07:55 Pulmicort INHALATION 1 mg RT-BID JESSENIA Administration Donepezil HCl 5 mg 08/12/17 21:00 08/14/17 23:01 Aricept PO 5 mg HS JESSENIA Administration Formoterol Fumarate 20 mcg 08/12/17 20:00 08/15/17 07:54 Perforomist INHALATION 20 mcg RT-BID JESSENIA Administration Furosemide 20 mg 08/12/17 09:00 08/14/17 16:33 Lasix PO 20 mg BID@0900,1600 JESSENIA Administration Heparin Sodium (Porcine) 0 unit 08/14/17 19:41 08/15/17 03:47 Heparin IV 2,100 unit PER PROTOCOL PRN Administration Low PTT Protocol Diltiazem HCl 125 mg/ Sodium 125 mls @ 10 mls/hr 08/14/17 19:45 08/15/17 05: 58 Chloride IV 10 mg/hr .[id number] JESSENIA 10 mls/hr 10 MG/HR Administration Heparin Sodium/Sodium Chloride 500 mls @ 10.08 mls/hr 08/14/17 19:45 03:45 25,000 unit/ Sodium Chloride IV 15 units/kg/hr .Q24H JESSENIA 12.6 mls/hr Protocol Titration 12 UNITS/KG/HR Insulin Aspart 0 unit 08/14/17 07:30 08/15/17 06:08 Novolog SQ 2 unit ACHS JESSENIA Administration Protocol Lorazepam 0.5 mg 08/13/17 19:13 08/15/17 08:07 Ativan IV 0.5 mg DAILY PRN Administration Anxiety Magnesium Oxide 400 mg 08/13/17 09:00 08/14/17 08:16 Mag-Ox PO 400 mg DAILY JESSENIA Administration Melatonin 3 mg 08/12/17 01:00 08/14/17 23:01 Melatonin PO 3 mg HS JESSENIA Administration Methylprednisolone Sodium Succinate 60 mg 08/13/17 00:00 08/15/17 06:08 Solu-Medrol IV 60 mg Q6HR JESSENIA Administration Nicotine 1 patch 08/14/17 12:30 08/15/17 08:07 Habitrol 21mg/24hr Patch TRANSDERM 1 patch DAILY JESSENIA Administration Intake and Output 08/14/17 08/15/17 08/15/17 22:59 06:59 14:59 Intake Total 160.027 Output Total 400 500 Balance -400 -339.973 Intake: Intake, IV Titration 160.027 Amount Diltiazem 125 mg In 93.667 Sodium Chloride 0.9% 100 ml @ 10 MG/HR 10 mls/hr IV .[id number] JESSENIA Rx#: [id number] Heparin Sod,Pork in 0.45% 66.36 NaCl 25,000 unit In 0.45 % NaCl 1 500ml.bag @ 12 UNITS/KG/HR 10.08 mls/hr IV .Q24H JESSENIA Rx#: [id number] Output: Urine 400 500 Other: Voiding Method Bedside Commode Bedside Commode Bedpan # Voids 1 0 # Bowel Movements 1 Weight 42 kg 61 kg 08/15/17 02:40 08/14/17 07:54 EKG Interpretations (text) EKG shows atrial fibrillation with a rapid ventricular response Assessment and Plan Plan: Assessment and plan #1 COPD exacerbation #2 history of severe COPD #3 atrial fibrillation with rapid ventricular response, paroxysmal. Patient currently in normal sinus rhythm. #4 pulmonary fibrosis #5 history of pulmonary tuberculosis #6 nicotine dependence Plan We will obtain an echocardiogram with Doppler study. We will also start the patient on verapamil, discontinue the heparin and initiate TeleQuest 2-1/2 mg one tablet twice a day for anticoagulation. Free T4 and TSH level will also be obtained. DNP note has been reviewed, I agree with a documented findings and plan of care. Patient was seen and examined.
[2017-08-15] MEDS: VERAPAMIL 40 MG TAB PO SCH ×3 (14:50→21:13)
[2017-08-15] MEDS ORDERED: Magnesium Replacement Protocol 1 EACH MISC MISCELLANE PRN (15:38)
--- NOTE | 2017-08-15 15:40 | P.PN ---
Subjective Progress Note Date: 08/14/17 Progress note being dictated for Dr. Scanlon. Interval history: This is a 76-year-old female admitted with acute hypoxic respiratory failure, severe acute exacerbation COPD, community-acquired pneumonia and multiple other medical issues. Maintained on Rocephin, Zithromax , IV steroids, nebulized bronchodilators. Afebrile, WBC 20. Chest x-ray reporting chronic bilateral upper lobe lung findings; increased retrosternal air space and slight increase in AP diameter and mild flattening of the diaphragms compatible with edematous change.Maintaining O2 sats of 99% on 3 L nasal cannula. Harsh nonproductive cough, shallow breathing with audible wheezing. Objective - Vital Signs Vital signs: Vital Signs Temp 97.8 F 08/14/17 15:00 Pulse 116 H 08/14/17 17:39 Resp 22 08/14/17 17:27 BP 163/80 08/14/17 15:00 Pulse Ox 97 08/14/17 15:00 Intake & Output 08/14/17 08/14/17 08/15/17 06:59 18:59 06:59 Intake Total 690 Output Total 200 Balance 490 Weight 42 kg Intake: Intake, IV Titration 250 Amount Azithromycin 500 mg In 250 Sodium Chloride 0.9% 250 ml @ 125 mls/hr IVPB DAILY JESSENIA Rx#:[id number] Oral 440 Output: Urine 200 Other: Voiding Method Bedside Commode Bedside Commode # Voids 3 # Bowel Movements 1 - Exam PHYSICAL EXAM: VITAL SIGNS: As above GENERAL: Sitting up in bed, respiratory effort increased HEENT: Conjunctivae normal. eyes normal. Oral mucosa moist NECK: No JVD. No thyroid enlargement. No LNs CARDIOVASCULAR: S1, S2 muffled. No murmur RESPIRATION: Breath sounds diminished in the bases. Scattered rhonchi, crackles and expiratory wheezes throughout. ABDOMEN: Soft, nontender . No guarding. no masses palpable. Bowel sounds heard. LEGS: No edema. no swelling PSYCHIATRY: Alert and oriented -3, mood and affect normal. NERVOUS SYSTEM: Cranial N 2-12 grossly normal. Moves all 4 limbs. Diffuse weakness No focal deficits. Skin: no ulcer no rash Joints: No active swelling. No inflammation. Lymphatic system. No LN neck axilla or groin. - Labs CBC & Chem 7: 08/15/17 02:40 08/14/17 07:54 Labs: Abnormal Lab Results - Last 24 Hours (Table) 08/14/17 08/14/17 08/14/17 Range/Units 07:26 07:54 07:54 WBC 20.5 H (3.8-10.6) k/uL MCHC 29.2 L (31.0-37.0) g/dL Neutrophils # 19.0 H (1.3-7.7) k/uL Lymphocytes # 0.6 L (1.0-4.8) k/uL Chloride 93 L (98-107) mmol/L Carbon Dioxide 41 H* (22-30) mmol/L BUN 30 H (7-17) mg/dL Glucose 129 H (74-99) mg/dL POC Glucose (mg/dL) 134 H (75-99) mg/dL 08/14/17 08/14/17 Range/Units 11:58 17:27 WBC (3.8-10.6) k/uL MCHC (31.0-37.0) g/dL Neutrophils # (1.3-7.7) k/uL Lymphocytes # (1.0-4.8) k/uL Chloride (98-107) mmol/L Carbon Dioxide (22-30) mmol/L BUN (7-17) mg/dL Glucose (74-99) mg/dL POC Glucose (mg/dL) 129 H 183 H (75-99) mg/dL Microbiology - Last 24 Hours (Table) 08/12/17 16:56 Blood Culture - Preliminary Blood No Growth after 48 hours 08/12/17 17:10 Blood Culture - Preliminary Blood No Growth after 24 hours Assessment and Plan Assessment: 1. Acute hypoxic respiratory failure secondary to severe acute COPD exacerbation 2. Community-acquired pneumonia 3. Leukocytosis secondary to the above 4. History of pulmonary fibrosis 5. Ongoing nicotine abuse Plan: Continue on current medication regime ,monitoring and symptomatic treatment. Evaluated by pulmonary with recommendations appreciated. Maintain nebulized bronchodilators, steroids, antibiotics. Smoking cessation reinforced. Nicotine patch in place. Prognosis guarded given multiple complex medical issues. The impression and plan of care has been dictated as directed. : I performed a history and examination of this patient, discussed the same with the dictator. I agree with the dictator's note ,documented as a scribe. Any additional findings or plans will be noted.
[2017-08-15] MEDS ORDERED: Potassium Replacement Protocol 1 EACH MISC MISCELLANE PRN (15:57)
--- NOTE | 2017-08-15 15:57 | P.PN ---
Subjective Progress Note Date: 08/15/17 Progress note being dictated for Dr. Scanlon. Interval history: This is a 76-year-old female admitted with acute hypoxic respiratory failure, severe acute exacerbation COPD, community-acquired pneumonia and multiple other medical issues. Maintained on Rocephin, Zithromax , IV steroids, nebulized bronchodilators. Afebrile, WBC 20. Chest x-ray reporting chronic bilateral upper lobe lung findings; increased retrosternal air space and slight increase in AP diameter and mild flattening of the diaphragms compatible with edematous change. Audible wheezing, maintaining O2 sats of 99% on 3 L nasal cannula. 08/15/17 developed worsening shortness of breath, placed on BiPAP,atrial fibrillation with RVR and transferred to telemetry floor last night. Maintained on Cardizem drip. Anticoagulated on heparin drip. Telemetry reporting atrial fibrillation heart rate currently 90 to low 100s. Remains BiPAP dependent. Afebrile. Nonproductive loose cough. Unable to perform review of systems as patient BiPAP dependent Active Medications Acetaminophen (Tylenol Tab) 650 mg PO Q6HR PRN PRN Reason: Fever and/ or Pain Last Admin: 08/12/17 03:35 Dose: 650 mg Albuterol/Ipratropium (Duoneb 0.5 Mg-3 Mg/3 Ml Soln) 3 ml INHALATION RT-Q4H [facility] Last Admin: 08/15/17 10:59 Dose: 3 ml Albuterol/Ipratropium (Duoneb 0.5 Mg-3 Mg/3 Ml Soln) 3 ml INHALATION RT-Q2H PRN PRN Reason: Shortness Of Breath Or Wheezing Last Admin: 08/14/17 17:27 Dose: 3 ml Alprazolam (Xanax) 0.5 mg PO TID PRN PRN Reason: Anxiety Last Admin: 08/14/17 17:15 Dose: 0.5 mg Amoxicillin/Clavulanate Potassium (Augmentin 875-125) 1 each PO Q12HR [facility] Last Admin: 08/15/17 10:41 Dose: 1 each Apixaban (Eliquis) 2.5 mg PO BID [facility] Last Admin: 08/15/17 12:48 Dose: 2.5 mg Budesonide (Pulmicort) 1 mg INHALATION RT-BID [facility] Last Admin: 08/15/17 07:55 Dose: 1 mg Donepezil HCl (Aricept) 5 mg PO HS [facility] Last Admin: 08/14/17 23:01 Dose: 5 mg Formoterol Fumarate (Perforomist) 20 mcg INHALATION RT-BID [facility] Last Admin: 08/15/17 07:54 Dose: 20 mcg Furosemide (Lasix) 20 mg PO BID@0900,1600 [facility] Last Admin: 08/15/17 10:41 Dose: 20 mg Diltiazem HCl 125 mg/ Sodium (Chloride) 125 mls @ 10 mls/hr IV .[id number] [facility] PRN Reason: 10 MG/HR Stop: 08/15/17 16:00 Last Admin: 08/15/17 05:58 Dose: 10 mg/hr, 10 mls/hr Insulin Aspart (Novolog) 0 unit SQ ACHS [facility] PRN Reason: Protocol Last Admin: 08/15/17 14:51 Dose: 5 unit Lorazepam (Ativan) 0.5 mg IV DAILY PRN PRN Reason: Anxiety Last Admin: 08/15/17 08:07 Dose: 0.5 mg Magnesium Oxide (Mag-Ox) 400 mg PO DAILY [facility] Last Admin: 08/15/17 10:41 Dose: 400 mg Melatonin (Melatonin) 3 mg PO HS [facility] Last Admin: 08/14/17 23:01 Dose: 3 mg Methylprednisolone Sodium Succinate (Solu-Medrol) 60 mg IV Q6HR [facility] Last Admin: 08/15/17 12:44 Dose: 60 mg Miscellaneous Information (Magnesium Per Protocol) 1 each MISCELLANE DAILY PRN ; Protocol PRN Reason: Per Protocol Nicotine (Habitrol 21mg/24hr Patch) 1 patch TRANSDERM DAILY [facility] Last Admin: 08/15/17 08:07 Dose: 1 patch Verapamil HCl (Isoptin) 40 mg PO TID [facility] Last Admin: 08/15/17 14:50 Dose: 40 mg Objective - Vital Signs Vital signs: Vital Signs Temp 97.8 F 08/15/17 15:06 Pulse 98 08/15/17 15:15 Resp 24 08/15/17 15:15 BP 129/71 08/15/17 15:06 Pulse Ox 93 L 08/15/17 15:06 Intake & Output 08/14/17 08/15/17 08/15/17 18:59 06:59 18:59 Intake Total 690 160.027 87.57 Output Total 400 500 Balance 290 -339.973 87.57 Weight 42 kg 61 kg Intake: Intake, IV Titration 250 160.027 87.57 Amount Azithromycin 500 mg In 250 Sodium Chloride 0.9% 250 ml @ 125 mls/hr IVPB DAILY JESSENIA Rx#:[id number] Diltiazem 125 mg In 93.667 Sodium Chloride 0.9% 100 ml @ 10 MG/HR 10 mls/hr IV .[id number] JESSENIA Rx#: [id number] Heparin Sod,Pork in 0.45% 66.36 87.57 NaCl 25,000 unit In 0.45 % NaCl 1 500ml.bag @ 12 UNITS/KG/HR 10.08 mls/hr IV .Q24H JESSENIA Rx#: [id number] Oral 440 Output: Urine 400 500 Other: Voiding Method Bedside Commode Bedside Commode Bedpan # Voids 3 0 # Bowel Movements 1 - Exam PHYSICAL EXAM: VITAL SIGNS: As above GENERAL: Sitting up in bed, respiratory effort increased HEENT: Conjunctivae normal. eyes normal. Oral mucosa moist NECK: No JVD. No thyroid enlargement. No LNs CARDIOVASCULAR: S1, S2 muffled. Irregular, No murmur RESPIRATION: Breath sounds diminished in the bases. Scattered rhonchi, and expiratory wheezes throughout. ABDOMEN: Soft, nontender . No guarding. no masses palpable. Bowel sounds heard. LEGS: No edema. no swelling PSYCHIATRY: Alert and oriented -3, mood and affect normal. NERVOUS SYSTEM: Cranial N 2-12 grossly normal. Moves all 4 limbs. Diffuse weakness No focal deficits. Skin: no ulcer no rash Joints: No active swelling. No inflammation. Lymphatic system. No LN neck axilla or groin. - Labs CBC & Chem 7: 08/15/17 02:40 08/14/17 07:54 Labs: Abnormal Lab Results - Last 24 Hours (Table) 08/14/17 08/14/17 08/14/17 Range/Units 17:27 19:53 19:53 WBC 20.0 H (3.8-10.6) k/uL Hct 46.8 H (34.0-46.0) % MCHC 30.0 L (31.0-37.0) g/dL Neutrophils # 18.5 H (1.3-7.7) k/uL Lymphocytes # 0.4 L (1.0-4.8) k/uL APTT 20.6 L (22.0-30.0) sec POC Glucose (mg/dL) 183 H (75-99) mg/dL 08/14/17 08/15/17 08/15/17 Range/Units 21:56 02:40 06:05 WBC 15.3 H (3.8-10.6) k/uL Hct (34.0-46.0) % MCHC 28.8 L (31.0-37.0) g/dL Neutrophils # 13.8 H (1.3-7.7) k/uL Lymphocytes # 0.7 L (1.0-4.8) k/uL APTT (22.0-30.0) sec POC Glucose (mg/dL) 118 H 152 H (75-99) mg/dL 08/15/17 Range/Units 11:44 WBC (3.8-10.6) k/uL Hct (34.0-46.0) % MCHC (31.0-37.0) g/dL Neutrophils # (1.3-7.7) k/uL Lymphocytes # (1.0-4.8) k/uL APTT (22.0-30.0) sec POC Glucose (mg/dL) 195 H (75-99) mg/dL Microbiology - Last 24 Hours (Table) 08/12/17 17:10 Blood Culture - Preliminary Blood No Growth after 48 hours 08/12/17 16:56 Blood Culture - Preliminary Blood No Growth after 48 hours Assessment and Plan Assessment: 1. Acute hypoxic respiratory failure secondary to severe acute COPD exacerbation 2. Community-acquired pneumonia 3. Leukocytosis secondary to the above 4. History of pulmonary fibrosis 5. Ongoing nicotine abuse 7. Proximal A. fib with RVR, anticoagulated on Eliquis Plan: Continue on current medication regime, monitoring and symptomatic treatment. BMP and magnesium level pending. Maintain nebulized bronchodilators , steroids, antibiotics. Smoking cessation reinforced. Nicotine patch in place. Antiarrhythmics as per cardiology. Now being anticoagulated on Eliquis. Prognosis guarded given multiple complex medical issues. The impression and plan of care has been dictated as directed. : I performed a history and examination of this patient, discussed the same with the dictator. I agree with the dictator's note ,documented as a scribe. Any additional findings or plans will be noted.
[2017-08-15 16:52] LABS: Blood Urea Nitrogen 34 mg/dL (7-17); Calcium 9.3 mg/dL (8.4-10.2); Chloride 93 mmol/L (98-107); Glucose 116 mg/dL (74-99); Potassium 4.6 mmol/L (3.5-5.1); Sodium 141 mmol/L (137-145)
[2017-08-15 17:00] LABS: Anion Gap 4 mmol/L
[2017-08-15 17:05] LABS: Carbon Dioxide 44 mmol/L (22-30)
[2017-08-15 17:11] LABS: Glucose,Whole Blood 125 mg/dL (75-99)
[2017-08-15] MEDS: DONEPEZIL 5 MG TAB PO SCH (21:13)
[2017-08-15] MEDS: MELATONIN 3 MG TABLET PO SCH (21:13)
[2017-08-15 23:01] LABS: Glucose,Whole Blood 161 mg/dL (75-99)
[2017-08-16] MEDS: IPRATROPIUM-ALBUTEROL 3 ML NEB INHALATION SCH ×6 (00:13→18:52)
[2017-08-16 05:49] LABS: Glucose,Whole Blood 149 mg/dL (75-99)
[2017-08-16] MEDS: methylPREDNISolone SOD SUCCI 125 MG/2 ML VIAL IV SCH ×4 (05:59→23:57)
[2017-08-16] MEDS: INSULIN ASPART 100 UNIT/ML 1 ML 10 ML VIAL SQ SCH ×4 (06:00→23:58)
[2017-08-16 06:02] LABS: Basophils % (A) 0 %; Eosinophils # (A) 0.1 k/uL (0-0.7); Eosinophils % (A) 1 %; HCT 44.6 % (34.0-46.0); HGB 13.2 gm/dL (11.4-16.0); Hypochromasia Marked; Lymphocytes # (A) 0.5 k/uL (1.0-4.8); Lymphocytes % (A) 4 %; MCHC 29.7 g/dL (31.0-37.0); MCV 90.9 fL (80.0-100.0); Mean Platelet Volume 7.1; Monocytes # (A) 0.6 k/uL (0-1.0); Monocytes % (A) 4 %; Neutrophils % (A) 91 %; Platelet Count 308 k/uL (150-450); RDW 12.4 % (11.5-15.5); WBC 13.2 k/uL (3.8-10.6)
[2017-08-16 06:09] LABS: Blood Urea Nitrogen 40 mg/dL (7-17); Calcium 9.5 mg/dL (8.4-10.2); Chloride 91 mmol/L (98-107); Glucose 139 mg/dL (74-99); Potassium 4.8 mmol/L (3.5-5.1); Sodium 141 mmol/L (137-145)
[2017-08-16 06:16] LABS: Anion Gap 3 mmol/L
[2017-08-16 06:17] LABS: Carbon Dioxide 47 mmol/L (22-30)
[2017-08-16] MEDS: MAGNESIUM OXIDE 400 MG TAB PO SCH (08:09)
[2017-08-16] MEDS: APIXABAN 2.5 MG TABLET PO SCH ×2 (08:09→20:17)
[2017-08-16] MEDS: NICOTINE 21MG/24HR PATCH TRANSDERM SCH (08:09)
[2017-08-16] MEDS: VERAPAMIL 40 MG TAB PO SCH ×2 (08:09→17:22)
[2017-08-16] MEDS: FUROSEMIDE 20 MG TAB PO SCH ×2 (08:09→17:22)
[2017-08-16] MEDS: AMOXIC-POT CLAV 875-125MG 1 EACH TAB PO SCH ×2 (08:10→20:18)
[2017-08-16] MEDS: FORMOTEROL FUMARATE 20 MCG/2 ML NEBU INHALATION SCH ×2 (08:40→19:07)
[2017-08-16] MEDS: BUDESONIDE 1 MG/2 ML NEBU INHALATION SCH ×2 (08:40→18:53)
[2017-08-16 11:25] LABS: Glucose,Whole Blood 230 mg/dL (75-99)
--- NOTE | 2017-08-16 13:26 | P.PN ---
Subjective Progress Note Date: 08/16/17 Principal diagnosis: Acute hypoxic respiratory failure secondary to COPD exacerbation Consult dated 08/14/2017 This is a 76-year-old female with a history of COPD exacerbation. The patient was seen by the hospitalist. She apparently was transferred down from [facility]. She was here in the emergency department for a couple of days. She barely came in with a issue of severe COPD exacerbation. She has a previous history of tuberculosis biapical pulmonary fibrosis CHF dementia who presented with difficulty breathing coughing wheezing shortness of breath. No fever no chills. Bring up only small amount of phlegm. The patient was treated there in the standard fashion not getting any better and transferred down. The patient still quite short of breath. We are seeing her today, she was just ready to go for an x-ray. She appears to look like someone with emphysema. Chest x-ray showed evidence dose of COPD/emphysematous changes. There was no acute infiltrate. The patient was quite tachypneic and dyspneic. She had significant conversational dyspnea and was not a particularly good historian. On 08/15/2017 patient seen again in follow-up. She remains on BiPAP with pressures at 10/5, and FiO2 of 40%. She is quite anxious at times, but for the most part she is tolerating the BiPAP fairly well. She is not able to tolerate being off of it for very long, she desaturates, becomes very tachycardic and tachypnec. She remains afebrile, hemodynamically stable. Lung sounds are positive for diminished breath sounds. She has a loose congested nonproductive cough. Today's lab work shows WBC of 15.3, hemoglobin is 13. She continues on IV steroids, Augmentin, oral Lasix, Pulmicort and Perforomist, and DuoNeb nebulized treatments. On 08/08/2017 patient seen in follow-up. She remains on BiPAP support most of the time, is not able to tolerate being off of it for very long, becomes extremely dyspneic. Lung sounds are positive for coarse rhonchi, and some scattered wheezing. Patient appears anxious. She continues on high-dose of Solu-Medrol 60 mg every 6 hours, oral Augmentin, nebulized treatments. Nursing reports that patient is daughter has talked about enrollment in hospice, however when CODE STATUS was discussed with the patient herself, she states she is not sure about the life support, but does want CPR, because "she has things to take care of". She has maintained limited to no improvement in regards to her pulmonary status, despite the maximized medical treatment. Objective - Vital Signs Vital signs: Vital Signs Temp 97.7 F 08/16/17 12:06 Pulse 88 08/16/17 12:20 Resp 32 H 08/16/17 12:06 BP 163/77 08/16/17 12:06 Pulse Ox 98 08/16/17 12:06 Intake & Output 08/15/17 08/16/17 08/16/17 18:59 06:59 18:59 Intake Total 667.57 240 Output Total 1000 1200 400 Balance -332.43 -1200 -160 Weight 71 kg Intake: Intake, IV Titration 87.57 Amount Heparin Sod,Pork in 0.45% 87.57 NaCl 25,000 unit In 0.45 % NaCl 1 500ml.bag @ 12 UNITS/KG/HR 10.08 mls/hr IV .Q24H [facility] Rx#: [id number] Oral 580 240 Output: Urine 1000 1200 400 Other: Voiding Method Bedpan Bedpan Bedpan # Voids 4 2 - Exam GENERAL EXAM: Alert, pleasant, slightly restless 76-year-old thin white female on BiPAP support, restless, and anxious HEAD: Normocephalic/atraumatic. EYES: Normal reaction of pupils, equal size. Conjunctiva pink, sclera white. NOSE: Clear with pink turbinates. THROAT: No erythema or exudates. NECK: No masses, no JVD, no thyroid enlargement, no adenopathy. CHEST: No chest wall deformity. Symmetrical expansion. LUNGS: Diminished breath sounds bilaterally, with scattered rhonchi and wheezes CVS: Regular rate and rhythm, normal S1 and S2, no gallops, no murmurs, no rubs ABDOMEN: Soft, nontender. No hepatosplenomegaly, normal bowel sounds, no guarding or rigidity. EXTREMITIES: No clubbing, no edema, no cyanosis, 2+ pulses and upper and lower extremities. MUSCULOSKELETAL: Muscle strength and tone normal. SPINE: No scoliosis or deformity SKIN: No rashes CENTRAL NERVOUS SYSTEM: Alert and oriented -3. No focal deficits, tone is normal in all 4 extremities. PSYCHIATRIC: Alert and oriented -3. Appropriate affect. Intact judgment and insight. - Labs CBC & Chem 7: 08/16/17 05:28 08/16/17 05:28 Labs: Abnormal Lab Results - Last 24 Hours (Table) 08/15/17 08/15/17 08/15/17 Range/Units 02:40 16:08 16:51 WBC (3.8-10.6) k/uL MCHC (31.0-37.0) g/dL Neutrophils # (1.3-7.7) k/uL Lymphocytes # (1.0-4.8) k/uL Chloride 93 L (98-107) mmol/L Carbon Dioxide 44 H* (22-30) mmol/L BUN 34 H (7-17) mg/dL Glucose 116 H (74-99) mg/dL POC Glucose (mg/dL) 125 H (75-99) mg/dL Magnesium 2.7 H (1.6-2.3) mg/dL 08/15/17 08/16/17 08/16/17 Range/Units 22:49 05:28 05:28 WBC 13.2 H (3.8-10.6) k/uL MCHC 29.7 L (31.0-37.0) g/dL Neutrophils # 12.0 H (1.3-7.7) k/uL Lymphocytes # 0.5 L (1.0-4.8) k/uL Chloride 91 L (98-107) mmol/L Carbon Dioxide 47 H* (22-30) mmol/L BUN 40 H (7-17) mg/dL Glucose 139 H (74-99) mg/dL POC Glucose (mg/dL) 161 H (75-99) mg/dL Magnesium 2.6 H (1.6-2.3) mg/dL 08/16/17 08/16/17 Range/Units 05:45 11:12 WBC (3.8-10.6) k/uL MCHC (31.0-37.0) g/dL Neutrophils # (1.3-7.7) k/uL Lymphocytes # (1.0-4.8) k/uL Chloride (98-107) mmol/L Carbon Dioxide (22-30) mmol/L BUN (7-17) mg/dL Glucose (74-99) mg/dL POC Glucose (mg/dL) 149 H 230 H (75-99) mg/dL Magnesium (1.6-2.3) mg/dL Microbiology - Last 24 Hours (Table) 08/12/17 17:10 Blood Culture - Preliminary Blood No Growth after 72 hours 08/12/17 16:56 Blood Culture - Preliminary Blood No Growth after 72 hours Assessment and Plan Plan: Assessment: #1. Acute hypoxic respiratory failure secondary to COPD exacerbation #2. Chronic hypercapnic respiratory failure secondary to advanced COPD #3. History of pulmonary fibrosis #4. History of CHF, unspecified #5. History of dementia #6. History of nicotine dependence and tobacco abuse #. Previous history of pulmonary tuberculosis Plan: We will add theophylline 300 mg extended dose at bedtime, continue Solu-Medrol 60 mg every 6 hours, continue Pulmicort, Perforomist, DuoNeb. Continue Augmentin. We'll obtain a repeat chest x-ray today. Prognosis is guarded, given the patient's advanced COPD and multiple comorbidities. Continue with BiPAP support, will increase patient's Ativan 0.5 mg every 8 hours as needed for anxiety. I performed a history & physical examination of the patient and discussed their management with my nurse practitioner, Kimmy Evans. I reviewed the nurse practitioner's note and agree with the documented findings and plan of care. Lung sounds are positive for scattered rhonchi and wheezing. The findings and the impression was discussed with the patient. I attest to the documentation by the nurse practitioner. Time with Patient: Less than 30
--- NOTE | 2017-08-16 15:07 | XR ---
EXAMINATION TYPE: XR chest 1V portable DATE OF EXAM: 08/16/2017 COMPARISON: Prior chest x-ray 08/14/2017 HISTORY: Shortness of breath TECHNIQUE: Single frontal view of the chest is obtained. FINDINGS: Prominent lung volumes again noted compatible with COPD, apical scarring bilaterally mil tible with chronic granulomatous disease. The heart is small. Pulmonary vascularity and robinson retracte d apically due to scarring. No evident pneumothorax or pleural effusion. There are overlying cardiac leads. There is a spinal curvature. IMPRESSION: No acute process.
--- NOTE | 2017-08-16 15:33 | P.PN ---
Subjective Progress Note Date: 08/16/17 This is a 76-year-old female with history of severe COPD, pulmonary fibrosis, tuberculosis, congestive heart failure, nicotine dependence, dementia , who was transferred here from [facility]. According to the patient, she went to the hospital there because of progressively worsening shortness of breath. Patient also states that she's been feeling her heart racing fast and at times experiencing discomfort in her chest. She was being treated as an outpatient for a possible bronchitis or pneumonia and was initiated on Zithromax and prednisone as an outpatient. EKG performed at [facility] on admission there showed a normal sinus rhythm with PACs. Troponins there 0.029, 0.025. Lactic acid 1.3 BNP 684. White blood cell count 9.8, hemoglobin 15.1, platelet count 278. Influenza A and B were negative area sodium 142, potassium 4.0, BUN 21, creatinine 0.7. Magnesium 2.4. Blood pressure [facility] with afebrile there x-ray performed in [place] revealed chronic emphysema changes with possible infiltrates bilaterally. Initial EKG performed on arrival here shows atrial fibrillation with a rapid ventricular response, subsequent EKG persists to show atrial fibrillation. Currently in normal sinus rhythm. According to the patient she has never been told in the past to have any irregularity of heartbeat. Blood pressure here 125/60, heart rate 100, 100 % on BiPAP. 08/16/2017 Patient seen and examined this morning, heart rate continues to be in the 80s, blood pressure 162/70. White blood cell count 13.2, potassium 4.8, BUN 40, creatinine 0.7. Magnesium 2.6. Objective - Vital Signs Vital signs: Vital Signs Temp 97.7 F 08/16/17 12:06 Pulse 80 08/16/17 15:11 Resp 32 H 08/16/17 12:06 BP 163/77 08/16/17 12:06 Pulse Ox 98 08/16/17 12:06 Intake & Output 08/15/17 08/16/17 08/16/17 18:59 06:59 18:59 Intake Total 667.57 240 Output Total 1000 1200 400 Balance -332.43 -1200 -160 Weight 71 kg Intake: Intake, IV Titration 87.57 Amount Heparin Sod,Pork in 0.45% 87.57 NaCl 25,000 unit In 0.45 % NaCl 1 500ml.bag @ 12 UNITS/KG/HR 10.08 mls/hr IV .Q24H [facility] Rx#: [id number] Oral 580 240 Output: Urine 1000 1200 400 Other: Voiding Method Bedpan Bedpan Bedpan # Voids 4 2 - Exam PHYSICAL EXAMINATION: HEENT: Head is atraumatic, normocephalic. Pupils equal, round. Neck is supple. There is no elevated jugular venous pressure. HEART EXAMINATION: Heart S1 and S2 irregular irregular CHEST EXAMINATION: nLungs reveal scattered coarse wheezing throughout with decreased air exchange throughout. ABDOMEN: Soft, nontender. Bowel sounds are heard. No organomegaly noted. EXTREMITIES: 2+ peripheral pulses with no evidence of peripheral edema and no calf tenderness noted. NEUROLOGIC patient is awake, alert and oriented -2. . - Labs CBC & Chem 7: 08/16/17 05:28 08/16/17 05:28 Labs: Abnormal Lab Results - Last 24 Hours (Table) 08/15/17 08/15/17 08/15/17 Range/Units 02:40 16:08 16:51 WBC (3.8-10.6) k/uL MCHC (31.0-37.0) g/dL Neutrophils # (1.3-7.7) k/uL Lymphocytes # (1.0-4.8) k/uL Chloride 93 L (98-107) mmol/L Carbon Dioxide 44 H* (22-30) mmol/L BUN 34 H (7-17) mg/dL Glucose 116 H (74-99) mg/dL POC Glucose (mg/dL) 125 H (75-99) mg/dL Magnesium 2.7 H (1.6-2.3) mg/dL 08/15/17 08/16/17 08/16/17 Range/Units 22:49 05:28 05:28 WBC 13.2 H (3.8-10.6) k/uL MCHC 29.7 L (31.0-37.0) g/dL Neutrophils # 12.0 H (1.3-7.7) k/uL Lymphocytes # 0.5 L (1.0-4.8) k/uL Chloride 91 L (98-107) mmol/L Carbon Dioxide 47 H* (22-30) mmol/L BUN 40 H (7-17) mg/dL Glucose 139 H (74-99) mg/dL POC Glucose (mg/dL) 161 H (75-99) mg/dL Magnesium 2.6 H (1.6-2.3) mg/dL 08/16/17 08/16/17 Range/Units 05:45 11:12 WBC (3.8-10.6) k/uL MCHC (31.0-37.0) g/dL Neutrophils # (1.3-7.7) k/uL Lymphocytes # (1.0-4.8) k/uL Chloride (98-107) mmol/L Carbon Dioxide (22-30) mmol/L BUN (7-17) mg/dL Glucose (74-99) mg/dL POC Glucose (mg/dL) 149 H 230 H (75-99) mg/dL Magnesium (1.6-2.3) mg/dL Microbiology - Last 24 Hours (Table) 08/12/17 17:10 Blood Culture - Preliminary Blood No Growth after 72 hours 08/12/17 16:56 Blood Culture - Preliminary Blood No Growth after 72 hours Assessment and Plan Plan: Assessment and plan #1 COPD exacerbation #2 history of severe COPD #3 atrial fibrillation with rapid ventricular response, paroxysmal. Patient currently in normal sinus rhythm. #4 pulmonary fibrosis #5 history of pulmonary tuberculosis #6 nicotine dependence Plan We will increase the verapamil to 90 mg 3 times a day for more optimal heart rate control. Continue Eliquis 200 mg one tablet by mouth twice a day. DNP note has been reviewed, I agree with a documented findings and plan of care. Patient was seen and examined.
[2017-08-16 16:43] LABS: Glucose,Whole Blood 125 mg/dL (75-99)
[2017-08-16] MEDS: VERAPAMIL 80 MG TAB PO SCH ×2 (17:23→20:17)
[2017-08-16] MEDS: LORazepam 2 MG/ML INJ IV PRN (19:20)
[2017-08-16] MEDS: DONEPEZIL 5 MG TAB PO SCH (20:17)
[2017-08-16] MEDS: MELATONIN 3 MG TABLET PO SCH (20:18)
[2017-08-16] MEDS: THEOPHYLLINE 24 HOUR 300 MG CAP.ER.24H PO SCH (20:18)
[2017-08-16 20:50] LABS: Glucose,Whole Blood 243 mg/dL (75-99)
[2017-08-17] MEDS: IPRATROPIUM-ALBUTEROL 3 ML NEB INHALATION SCH ×7 (00:05→23:32)
[2017-08-17] MEDS: methylPREDNISolone SOD SUCCI 125 MG/2 ML VIAL IV SCH ×3 (05:46→16:16)
[2017-08-17] MEDS: INSULIN ASPART 100 UNIT/ML 1 ML 10 ML VIAL SQ SCH ×4 (05:49→22:21)
[2017-08-17 05:58] LABS: Glucose,Whole Blood 116 mg/dL (75-99)
[2017-08-17 06:07] LABS: Basophils % (A) 0 %; Eosinophils # (A) 0.1 k/uL (0-0.7); Eosinophils % (A) 1 %; HCT 45.4 % (34.0-46.0); HGB 13.8 gm/dL (11.4-16.0); Hypochromasia Moderate; Lymphocytes # (A) 0.5 k/uL (1.0-4.8); Lymphocytes % (A) 4 %; MCH 26.8 pg (25.0-35.0); MCHC 30.5 g/dL (31.0-37.0); Monocytes # (A) 0.7 k/uL (0-1.0); Monocytes % (A) 5 %; Neutrophils # (A) 12.8 k/uL (1.3-7.7); Neutrophils % (A) 90 %; Platelet Count 315 k/uL (150-450); RBC 5.16 m/uL (3.80-5.40); RDW 12.7 % (11.5-15.5); WBC 14.3 k/uL (3.8-10.6)
[2017-08-17 06:32] LABS: Blood Urea Nitrogen 37 mg/dL (7-17); Calcium 9.3 mg/dL (8.4-10.2); Chloride 92 mmol/L (98-107); Glucose 130 mg/dL (74-99); Potassium 4.3 mmol/L (3.5-5.1); Sodium 141 mmol/L (137-145)
[2017-08-17 06:39] LABS: Anion Gap 2 mmol/L
[2017-08-17 06:42] LABS: Carbon Dioxide 47 mmol/L (22-30)
[2017-08-17] MEDS: BUDESONIDE 1 MG/2 ML NEBU INHALATION SCH ×2 (08:17→20:37)
[2017-08-17] MEDS: FORMOTEROL FUMARATE 20 MCG/2 ML NEBU INHALATION SCH ×2 (08:17→20:37)
[2017-08-17] MEDS: APIXABAN 2.5 MG TABLET PO SCH ×2 (08:51→20:02)
[2017-08-17] MEDS: FUROSEMIDE 20 MG TAB PO SCH ×2 (08:51→16:16)
[2017-08-17] MEDS: VERAPAMIL 80 MG TAB PO SCH ×3 (08:51→20:01)
[2017-08-17] MEDS: NICOTINE 21MG/24HR PATCH TRANSDERM SCH (08:51)
[2017-08-17] MEDS: MAGNESIUM OXIDE 400 MG TAB PO SCH (08:51)
[2017-08-17] MEDS: AMOXIC-POT CLAV 875-125MG 1 EACH TAB PO SCH ×2 (08:51→20:01)
--- NOTE | 2017-08-17 09:35 | P.PN ---
Subjective Progress Note Date: 08/16/17 Progress note being dictated for Dr. Scanlon. Interval history: This is a 76-year-old female admitted with acute hypoxic respiratory failure, severe acute exacerbation COPD, community-acquired pneumonia and multiple other medical issues. Maintained on Rocephin, Zithromax , IV steroids, nebulized bronchodilators. Afebrile, WBC 20. Chest x-ray reporting chronic bilateral upper lobe lung findings; increased retrosternal air space and slight increase in AP diameter and mild flattening of the diaphragms compatible with edematous change. Audible wheezing, maintaining O2 sats of 99% on 3 L nasal cannula. 08/15/17 developed worsening shortness of breath, placed on BiPAP,atrial fibrillation with RVR and transferred to telemetry floor last night. Maintained on Cardizem drip. Anticoagulated on heparin drip. Telemetry reporting atrial fibrillation heart rate currently 90 to low 100s. Remains BiPAP dependent. Afebrile. Nonproductive loose cough. Unable to perform review of systems as patient BiPAP dependent Active Medications Acetaminophen (Tylenol Tab) 650 mg PO Q6HR PRN PRN Reason: Fever and/ or Pain Last Admin: 08/12/17 03:35 Dose: 650 mg Albuterol/Ipratropium (Duoneb 0.5 Mg-3 Mg/3 Ml Soln) 3 ml INHALATION RT-Q4H [facility] Last Admin: 08/15/17 10:59 Dose: 3 ml Albuterol/Ipratropium (Duoneb 0.5 Mg-3 Mg/3 Ml Soln) 3 ml INHALATION RT-Q2H PRN PRN Reason: Shortness Of Breath Or Wheezing Last Admin: 08/14/17 17:27 Dose: 3 ml Alprazolam (Xanax) 0.5 mg PO TID PRN PRN Reason: Anxiety Last Admin: 08/14/17 17:15 Dose: 0.5 mg Amoxicillin/Clavulanate Potassium (Augmentin 875-125) 1 each PO Q12HR [facility] Last Admin: 08/15/17 10:41 Dose: 1 each Apixaban (Eliquis) 2.5 mg PO BID [facility] Last Admin: 08/15/17 12:48 Dose: 2.5 mg Budesonide (Pulmicort) 1 mg INHALATION RT-BID [facility] Last Admin: 08/15/17 07:55 Dose: 1 mg Donepezil HCl (Aricept) 5 mg PO HS [facility] Last Admin: 08/14/17 23:01 Dose: 5 mg Formoterol Fumarate (Perforomist) 20 mcg INHALATION RT-BID [facility] Last Admin: 08/15/17 07:54 Dose: 20 mcg Furosemide (Lasix) 20 mg PO BID@0900,1600 [facility] Last Admin: 08/15/17 10:41 Dose: 20 mg Diltiazem HCl 125 mg/ Sodium (Chloride) 125 mls @ 10 mls/hr IV .[id number] [facility] PRN Reason: 10 MG/HR Stop: 08/15/17 16:00 Last Admin: 08/15/17 05:58 Dose: 10 mg/hr, 10 mls/hr Insulin Aspart (Novolog) 0 unit SQ ACHS [facility] PRN Reason: Protocol Last Admin: 08/15/17 14:51 Dose: 5 unit Lorazepam (Ativan) 0.5 mg IV DAILY PRN PRN Reason: Anxiety Last Admin: 08/15/17 08:07 Dose: 0.5 mg Magnesium Oxide (Mag-Ox) 400 mg PO DAILY [facility] Last Admin: 08/15/17 10:41 Dose: 400 mg Melatonin (Melatonin) 3 mg PO [facility] Last Admin: 08/14/17 23:01 Dose: 3 mg Methylprednisolone Sodium Succinate (Solu-Medrol) 60 mg IV Q6HR [facility] Last Admin: 08/15/17 12:44 Dose: 60 mg Miscellaneous Information (Magnesium Per Protocol) 1 each MISCELLANE DAILY PRN ; Protocol PRN Reason: Per Protocol Nicotine (Habitrol 21mg/24hr Patch) 1 patch TRANSDERM DAILY [facility] Last Admin: 08/15/17 08:07 Dose: 1 patch Verapamil HCl (Isoptin) 40 mg PO TID [facility] Last Admin: 08/15/17 14:50 Dose: 40 mg 08/16/16 maintained on nebulized bronchodilators, Augmentin, IV steroids.Remains BiPAP dependent. Respiratory rate escalates up into the 40s, when placed on nasal cannula for meals. Telemetry A. fib heart rate 90s to 100s.Family discussing options of hospice. Patient currently alert and oriented 3 , Declines code status change to DO NOT RESUSCITATE,declines hospice. states that she has something at home that she must take care of of herself and family cannot help her with. Objective - Vital Signs Vital signs: Vital Signs Temp 97.4 F L 08/16/17 16:33 Pulse 97 08/16/17 16:33 Resp 32 H 08/16/17 16:33 BP 164/78 08/16/17 16:33 Pulse Ox 98 08/16/17 16:33 Intake & Output 08/15/17 08/16/17 08/16/17 18:59 06:59 18:59 Intake Total 667.57 240 Output Total 1000 1200 400 Balance -332.43 -1200 -160 Weight 71 kg Intake: Intake, IV Titration 87.57 Amount Heparin Sod,Pork in 0.45% 87.57 NaCl 25,000 unit In 0.45 % NaCl 1 500ml.bag @ 12 UNITS/KG/HR 10.08 mls/hr IV .Q24H [facility] Rx#: [id number] Oral 580 240 Output: Urine 1000 1200 400 Other: Voiding Method Bedpan Bedpan Bedpan # Voids 4 2 - Exam PHYSICAL EXAM: VITAL SIGNS: As above GENERAL: Sitting up in bed, respiratory effort increased wearing BiPAP HEENT: Conjunctivae normal. eyes normal. NECK: No JVD. No thyroid enlargement. No LNs CARDIOVASCULAR: S1, S2 muffled. Irregular, No murmur RESPIRATION: Breath sounds diminished in the bases. Scattered rhonchi, and expiratory wheezes throughout. ABDOMEN: Soft, nontender . No guarding. no masses palpable. Bowel sounds heard. LEGS: No edema. no swelling PSYCHIATRY: Alert and oriented -3, mood and affect anxious. NERVOUS SYSTEM: Cranial N 2-12 grossly normal. Moves all 4 limbs. Diffuse weakness No focal deficits. Skin: no ulcer no rash Joints: No active swelling. No inflammation. Lymphatic system. No LN neck axilla or groin. - Labs CBC & Chem 7: 08/17/17 05:56 08/17/17 05:56 Labs: Abnormal Lab Results - Last 24 Hours (Table) 08/15/17 08/16/17 08/16/17 Range/Units 22:49 05:28 05:28 WBC 13.2 H (3.8-10.6) k/uL MCHC 29.7 L (31.0-37.0) g/dL Neutrophils # 12.0 H (1.3-7.7) k/uL Lymphocytes # 0.5 L (1.0-4.8) k/uL Chloride 91 L (98-107) mmol/L Carbon Dioxide 47 H* (22-30) mmol/L BUN 40 H (7-17) mg/dL Glucose 139 H (74-99) mg/dL POC Glucose (mg/dL) 161 H (75-99) mg/dL Magnesium 2.6 H (1.6-2.3) mg/dL 08/16/17 08/16/17 08/16/17 Range/Units 05:45 11:12 16:41 WBC (3.8-10.6) k/uL MCHC (31.0-37.0) g/dL Neutrophils # (1.3-7.7) k/uL Lymphocytes # (1.0-4.8) k/uL Chloride (98-107) mmol/L Carbon Dioxide (22-30) mmol/L BUN (7-17) mg/dL Glucose (74-99) mg/dL POC Glucose (mg/dL) 149 H 230 H 125 H (75-99) mg/dL Magnesium (1.6-2.3) mg/dL Microbiology - Last 24 Hours (Table) 08/12/17 17:10 Blood Culture - Preliminary Blood No Growth after 72 hours 08/12/17 16:56 Blood Culture - Preliminary Blood No Growth after 72 hours Assessment and Plan Assessment: 1. Acute hypoxic respiratory failure secondary to severe acute COPD exacerbation 2. Community-acquired pneumonia 3. Leukocytosis secondary to the above 4. History of pulmonary fibrosis 5. Ongoing nicotine abuse 7. Proximal A. fib with RVR, anticoagulated on Eliquis Plan: Continue on current medication regime, Ativan, monitoring and symptomatic treatment. Chest x-ray pending. Maintain nebulized bronchodilators, steroids, antibiotics. general distillery worker to meet with family and patient .Prognosis guarded given multiple complex medical issues. The impression and plan of care has been dictated as directed. : I performed a history and examination of this patient, discussed the same with the dictator. I agree with the dictator's note ,documented as a scribe. Any additional findings or plans will be noted.
--- NOTE | 2017-08-17 10:50 | P.PN ---
Subjective Progress Note Date: 08/17/17 Principal diagnosis: COPD exacerbation, shortness of breath Progress note dated 08/17/2017 76-year-old female with severe acute hypoxemic respiratory failure secondary to COPD as well as chronic hypercapnic respiratory failure secondary to severe end- stage COPD. The patient also has a history of pulmonary fibrosis, heart failure , dementia, history of ongoing nicotine dependence and tobacco abuse, and a history of pulmonary tuberculosis. Yesterday, we attempted to improve her breathing by adding some theophylline. We added a 1 time long duration preparation at 8 PM at nighttime. The patient is pretty much BiPAP dependent. Today finally, she has made herself a hospice patient. I think that's appropriate given how severe her chronic lung disease is. She is on all the usual medications. She is really not improving. Her COPD is quite severe. She was smoking up until the time she came into the hospital. Objective - Vital Signs Vital signs: Vital Signs Temp 97.5 F L 08/17/17 08:59 Pulse 75 08/17/17 08:59 Resp 31 H 08/17/17 08:59 BP 145/86 08/17/17 08:59 Pulse Ox 99 08/17/17 08:59 Intake & Output 08/16/17 08/17/17 08/17/17 18:59 06:59 18:59 Intake Total 480 Output Total 1600 Balance -1120 Weight 71 kg Intake: Oral 480 Output: Urine 1600 Other: Voiding Method Bedpan Bedpan Bedpan # Voids 6 3 1 # Bowel Movements 1 - Exam Moderate respiratory distress. BiPAP mask in place. HEENT examination is grossly unremarkable. Mucous membranes are moist. No oral lesions. Neck supple. Full range of motion. No adenopathy thyromegaly or neck vein distention. Cardiovascular examination reveals regular rhythm rate. S1-S2 normal. No S3 or S4. No discernible murmur noted. Heart rate equals 100 bpm Lungs reveal diminished breath sounds. There is coarse inspiratory and expiratory rhonchi. There is prolongation on forced maneuver. There is wheezing on forced maneuver. Abdomen soft bowel sounds are heard. No masses or tenderness. Extremities are intact. No cyanosis clubbing or edema. Skin is without rash or lesion. Neurologic examination is brief but nonfocal. - Labs CBC & Chem 7: 08/17/17 05:56 08/17/17 05:56 Labs: Abnormal Lab Results - Last 24 Hours (Table) 08/16/17 08/16/17 08/16/17 Range/Units 11:12 16:41 20:49 WBC (3.8-10.6) k/uL MCHC (31.0-37.0) g/dL Neutrophils # (1.3-7.7) k/uL Lymphocytes # (1.0-4.8) k/uL Chloride (98-107) mmol/L Carbon Dioxide (22-30) mmol/L BUN (7-17) mg/dL Glucose (74-99) mg/dL POC Glucose (mg/dL) 230 H 125 H 243 H (75-99) mg/dL 08/17/17 08/17/17 08/17/17 Range/Units 05:44 05:56 05:56 WBC 14.3 H (3.8-10.6) k/uL MCHC 30.5 L (31.0-37.0) g/dL Neutrophils # 12.8 H (1.3-7.7) k/uL Lymphocytes # 0.5 L (1.0-4.8) k/uL Chloride 92 L (98-107) mmol/L Carbon Dioxide 47 H* (22-30) mmol/L BUN 37 H (7-17) mg/dL Glucose 130 H (74-99) mg/dL POC Glucose (mg/dL) 116 H (75-99) mg/dL Microbiology - Last 24 Hours (Table) 08/12/17 17:10 Blood Culture - Preliminary Blood No Growth after 96 hours 08/12/17 16:56 Blood Culture - Preliminary Blood No Growth after 96 hours Assessment and Plan Assessment: Assessment Hypoxemic respiratory failure secondary to COPD exacerbation, in a patient with end-stage COPD. History of pulmonary fibrosis History of heart failure History of dementia Previous history of pulmonary tuberculosis Chronic nicotine dependence with ongoing tobacco use Stage IV chronic lung disease BiPAP dependence. Plan: Plan dated 08/14/2017 The patient's medications are reviewed. Labs are reviewed. X-ray shows only some emphysematous changes. We'll make sure that she is on a short acting beta agonist, short acting muscarinic antagonist, and inhaled corticosteroid, a long- acting beta agonist, and systemic corticosteroids. Likely also make sure she is on some sort of oral antibiotic and a nicotine patch. Additional recommendations and suggestions are forthcoming. Prognosis is poor. Plan dated 08/17/2017 The patient is doing poorly. She agreed to hospice. We'll continue with current medications until that is accomplished. The patient is pretty much BiPAP dependent. Medications are reviewed. We can certainly. Him down when she goes hospice. We can focus more on palliative care and/or comfort measures. Additional recommendations and suggestions are forthcoming. Time with Patient: Less than 30
[2017-08-17 10:57] LABS: S.pneumoniae Serotype 1 (1) 9.8 mcg/mL (>=2.3); S.pneumoniae Serotype 10A (34) 8.6 mcg/mL (>=2.9); S.pneumoniae Serotype 12F (12) 0.9 mcg/mL (>=0.6); S.pneumoniae Serotype 15B (54) 28.1 mcg/mL (>=3.3); S.pneumoniae Serotype 18C (56) 35.2 mcg/mL (>=3.3); S.pneumoniae Serotype 19F (19) 16.4 mcg/mL (>=15.0); S.pneumoniae Serotype 20 (20) 9.6 mcg/mL (>=1.3); S.pneumoniae Serotype 23F (23) 15.9 mcg/mL (>=8.0); S.pneumoniae Serotype 3 (3) 3.7 mcg/mL (>=1.8); S.pneumoniae Serotype 4 (4) 2.5 mcg/mL (>=0.6); S.pneumoniae Serotype 5 (5) 20.7 mcg/mL (>=10.7); S.pneumoniae Serotype 6B (26) 8.3 mcg/mL (>=4.7); S.pneumoniae Serotype 7F (51) 4.5 mcg/mL (>=3.2); S.pneumoniae Serotype 8 (8) 8.6 mcg/mL (>=2.9); S.pneumoniae Serotype 9N (9) 4.6 mcg/mL (>=9.2)
[2017-08-17 11:14] LABS: Glucose,Whole Blood 177 mg/dL (75-99)
--- NOTE | 2017-08-17 16:49 | P.PN ---
Subjective Progress Note Date: 08/17/17 Progress note being dictated for Dr. Scanlon. Interval history: This is a 76-year-old female admitted with acute hypoxic respiratory failure, severe acute exacerbation COPD, community-acquired pneumonia and multiple other medical issues. Maintained on Rocephin, Zithromax , IV steroids, nebulized bronchodilators. Afebrile, WBC 20. Chest x-ray reporting chronic bilateral upper lobe lung findings; increased retrosternal air space and slight increase in AP diameter and mild flattening of the diaphragms compatible with edematous change. Audible wheezing, maintaining O2 sats of 99% on 3 L nasal cannula. 08/15/17 developed worsening shortness of breath, placed on BiPAP,atrial fibrillation with RVR and transferred to telemetry floor last night. Maintained on Cardizem drip. Anticoagulated on heparin drip. Telemetry reporting atrial fibrillation heart rate currently 90 to low 100s. Remains BiPAP dependent. Afebrile. Nonproductive loose cough. Unable to perform review of systems as patient BiPAP dependent Active Medications Acetaminophen (Tylenol Tab) 650 mg PO Q6HR PRN PRN Reason: Fever and/ or Pain Last Admin: 08/12/17 03:35 Dose: 650 mg Albuterol/Ipratropium (Duoneb 0.5 Mg-3 Mg/3 Ml Soln) 3 ml INHALATION RT-Q4H [facility] Last Admin: 08/15/17 10:59 Dose: 3 ml Albuterol/Ipratropium (Duoneb 0.5 Mg-3 Mg/3 Ml Soln) 3 ml INHALATION RT-Q2H PRN PRN Reason: Shortness Of Breath Or Wheezing Last Admin: 08/14/17 17:27 Dose: 3 ml Alprazolam (Xanax) 0.5 mg PO TID PRN PRN Reason: Anxiety Last Admin: 08/14/17 17:15 Dose: 0.5 mg Amoxicillin/Clavulanate Potassium (Augmentin 875-125) 1 each PO Q12HR [facility] Last Admin: 08/15/17 10:41 Dose: 1 each Apixaban (Eliquis) 2.5 mg PO BID [facility] Last Admin: 08/15/17 12:48 Dose: 2.5 mg Budesonide (Pulmicort) 1 mg INHALATION RT-BID [facility] Last Admin: 08/15/17 07:55 Dose: 1 mg Donepezil HCl (Aricept) 5 mg PO HS [facility] Last Admin: 08/14/17 23:01 Dose: 5 mg Formoterol Fumarate (Perforomist) 20 mcg INHALATION RT-BID [facility] Last Admin: 08/15/17 07:54 Dose: 20 mcg Furosemide (Lasix) 20 mg PO BID@0900,1600 [facility] Last Admin: 08/15/17 10:41 Dose: 20 mg Diltiazem HCl 125 mg/ Sodium (Chloride) 125 mls @ 10 mls/hr IV .[id number] [facility] PRN Reason: 10 MG/HR Stop: 08/15/17 16:00 Last Admin: 08/15/17 05:58 Dose: 10 mg/hr, 10 mls/hr Insulin Aspart (Novolog) 0 unit SQ ACHS [facility] PRN Reason: Protocol Last Admin: 08/15/17 14:51 Dose: 5 unit Lorazepam (Ativan) 0.5 mg IV DAILY PRN PRN Reason: Anxiety Last Admin: 08/15/17 08:07 Dose: 0.5 mg Magnesium Oxide (Mag-Ox) 400 mg PO DAILY [facility] Last Admin: 08/15/17 10:41 Dose: 400 mg Melatonin (Melatonin) 3 mg PO [facility] Last Admin: 08/14/17 23:01 Dose: 3 mg Methylprednisolone Sodium Succinate (Solu-Medrol) 60 mg IV Q6HR [facility] Last Admin: 08/15/17 12:44 Dose: 60 mg Miscellaneous Information (Magnesium Per Protocol) 1 each MISCELLANE DAILY PRN ; Protocol PRN Reason: Per Protocol Nicotine (Habitrol 21mg/24hr Patch) 1 patch TRANSDERM DAILY [facility] Last Admin: 08/15/17 08:07 Dose: 1 patch Verapamil HCl (Isoptin) 40 mg PO TID [facility] Last Admin: 08/15/17 14:50 Dose: 40 mg 08/16/16 maintained on nebulized bronchodilators, Augmentin, IV steroids.Remains BiPAP dependent. Respiratory rate escalates up into the 40s, when placed on nasal cannula for meals. Telemetry A. fib heart rate 90s to 100s.Family discussing options of hospice. Patient currently alert and oriented 3 , Declines code status change to DO NOT RESUSCITATE,declines hospice. states that she has something at home that she must take care of of herself and family cannot help her with. 08/17/2017, remains BiPAP dependent, confused this morning. Telemetry reports atrial fibrillation with RVR. Family has changed patient's CODE STATUS to no code, no CPR, no intubation. Family and patient wishes to proceed with hospice. Objective - Vital Signs Vital signs: Vital Signs Temp 97.5 F L 08/17/17 12:06 Pulse 112 H 08/17/17 15:59 Resp 31 H 08/17/17 12:06 BP 141/75 08/17/17 12:06 Pulse Ox 92 L 08/17/17 12:06 Intake & Output 08/16/17 08/17/17 08/17/17 18:59 06:59 18:59 Intake Total 480 40 Output Total 1600 Balance -1120 40 Weight 71 kg Intake: Oral 480 40 Output: Urine 1600 Other: Voiding Method Bedpan Bedpan Bedpan # Voids 6 3 1 # Bowel Movements 1 - Exam PHYSICAL EXAM: VITAL SIGNS: As above GENERAL: Sitting up in bed, respiratory effort increased wearing BiPAP HEENT: Conjunctivae normal. eyes normal. NECK: No JVD. No thyroid enlargement. No LNs CARDIOVASCULAR: S1, S2 muffled. Irregular, No murmur RESPIRATION: Breath sounds diminished in the bases. Scattered rhonchi, and expiratory wheezes throughout. ABDOMEN: Soft, nontender . No guarding. no masses palpable. Bowel sounds heard. LEGS: No edema. no swelling PSYCHIATRY: Alert and oriented -1, mood and affect anxious. NERVOUS SYSTEM: Moves all 4 limbs. Diffuse weakness No focal deficits. Confused Skin: no ulcer no rash Joints: No active swelling. No inflammation. Lymphatic system. No LN neck axilla or groin. - Labs CBC & Chem 7: 08/17/17 05:56 08/17/17 05:56 Labs: Abnormal Lab Results - Last 24 Hours (Table) 08/16/17 08/16/17 08/17/17 Range/Units 16:41 20:49 05:44 WBC (3.8-10.6) k/uL MCHC (31.0-37.0) g/dL Neutrophils # (1.3-7.7) k/uL Lymphocytes # (1.0-4.8) k/uL Chloride (98-107) mmol/L Carbon Dioxide (22-30) mmol/L BUN (7-17) mg/dL Glucose (74-99) mg/dL POC Glucose (mg/dL) 125 H 243 H 116 H (75-99) mg/dL 08/17/17 08/17/17 08/17/17 Range/Units 05:56 05:56 11:10 WBC 14.3 H (3.8-10.6) k/uL MCHC 30.5 L (31.0-37.0) g/dL Neutrophils # 12.8 H (1.3-7.7) k/uL Lymphocytes # 0.5 L (1.0-4.8) k/uL Chloride 92 L (98-107) mmol/L Carbon Dioxide 47 H* (22-30) mmol/L BUN 37 H (7-17) mg/dL Glucose 130 H (74-99) mg/dL POC Glucose (mg/dL) 177 H (75-99) mg/dL Microbiology - Last 24 Hours (Table) 08/12/17 17:10 Blood Culture - Preliminary Blood No Growth after 96 hours 08/12/17 16:56 Blood Culture - Preliminary Blood No Growth after 96 hours Assessment and Plan Assessment: 1. Acute hypoxic respiratory failure secondary to severe acute end stage COPD exacerbation, BiPAP dependent 2. Community-acquired pneumonia 3. Leukocytosis secondary to the above 4. History of pulmonary fibrosis 5. Ongoing nicotine abuse 7. Proximal A. fib with RVR, anticoagulated on Eliquis 8. No code, no CPR, no intubation Plan: Continue on current medication regime, Ativan, monitoring and symptomatic treatment. CODE STATUS changed to no code, no CPR, no intubation. Hospice is being arranged with case management assistance. Further recommendations to follow. The impression and plan of care has been dictated as directed. : I performed a history and examination of this patient, discussed the same with the dictator. I agree with the dictator's note ,documented as a scribe. Any additional findings or plans will be noted.
[2017-08-17 16:56] LABS: Glucose,Whole Blood 150 mg/dL (75-99)
[2017-08-17] MEDS: ACETAMINOPHEN TAB 325 MG TAB PO PRN (20:00)
[2017-08-17] MEDS: MELATONIN 3 MG TABLET PO SCH (20:01)
[2017-08-17] MEDS: DONEPEZIL 5 MG TAB PO SCH (20:01)
[2017-08-17] MEDS: THEOPHYLLINE 24 HOUR 300 MG CAP.ER.24H PO SCH (20:02)
[2017-08-17 21:29] LABS: Glucose,Whole Blood 158 mg/dL (75-99)
[2017-08-18] MEDS: methylPREDNISolone SOD SUCCI 125 MG/2 ML VIAL IV SCH ×3 (00:48→12:01)
[2017-08-18] MEDS: IPRATROPIUM-ALBUTEROL 3 ML NEB INHALATION SCH ×4 (03:55→14:39)
[2017-08-18] MEDS: LORazepam 2 MG/ML INJ IV PRN (04:52)
[2017-08-18] MEDS ORDERED: DILTIAZEM 125 MG in SODIUM CHLORIDE 0.9% 100 ML IV SCH (05:30)
[2017-08-18 06:03] LABS: Glucose,Whole Blood 142 mg/dL (75-99)
[2017-08-18 06:42] LABS: Basophils # (A) 0.1 k/uL (0-0.2); Basophils % (A) 0 %; Eosinophils % (A) 0 %; HCT 45.8 % (34.0-46.0); HGB 13.8 gm/dL (11.4-16.0); Hypochromasia Slight; Lymphocytes # (A) 0.4 k/uL (1.0-4.8); Lymphocytes % (A) 2 %; MCH 26.9 pg (25.0-35.0); MCHC 30.2 g/dL (31.0-37.0); Mean Platelet Volume 6.8; Monocytes # (A) 1.4 k/uL (0-1.0); Monocytes % (A) 8 %; Neutrophils # (A) 16.2 k/uL (1.3-7.7); Neutrophils % (A) 89 %; Platelet Count 381 k/uL (150-450); RBC 5.14 m/uL (3.80-5.40); RDW 12.3 % (11.5-15.5); WBC 18.3 k/uL (3.8-10.6)
[2017-08-18] MEDS: INSULIN ASPART 100 UNIT/ML 1 ML 10 ML VIAL SQ SCH ×2 (06:47→12:49)
[2017-08-18 06:55] LABS: Anion Gap 7 mmol/L; Blood Urea Nitrogen 36 mg/dL (7-17); Calcium 9.4 mg/dL (8.4-10.2); Chloride 94 mmol/L (98-107); Glucose 147 mg/dL (74-99); Potassium 4.7 mmol/L (3.5-5.1); Sodium 141 mmol/L (137-145)
[2017-08-18 07:06] LABS: Carbon Dioxide 40 mmol/L (22-30)
[2017-08-18] MEDS: AMOXIC-POT CLAV 875-125MG 1 EACH TAB PO SCH (08:11)
[2017-08-18] MEDS: NICOTINE 21MG/24HR PATCH TRANSDERM SCH (08:11)
[2017-08-18] MEDS: ALPRAZolam 0.5 MG TAB PO PRN (08:11)
[2017-08-18] MEDS: MAGNESIUM OXIDE 400 MG TAB PO SCH (08:12)
[2017-08-18] MEDS: FUROSEMIDE 20 MG TAB PO SCH (08:12)
[2017-08-18] MEDS: APIXABAN 2.5 MG TABLET PO SCH (08:12)
[2017-08-18] MEDS: VERAPAMIL 80 MG TAB PO SCH (08:12)
[2017-08-18] MEDS: FORMOTEROL FUMARATE 20 MCG/2 ML NEBU INHALATION SCH (09:31)
[2017-08-18] MEDS: BUDESONIDE 1 MG/2 ML NEBU INHALATION SCH (09:31)
[2017-08-18 11:11] VITALS: RESP 20
[2017-08-18 12:06] LABS: Glucose,Whole Blood 105 mg/dL (75-99)
[2017-08-18 13:39] VITALS: BP 130/72; TEMP 97.4
[2017-08-18 13:44] VITALS: BMI 29.9
[2017-08-18 14:43] VITALS: PULSE 82
--- NOTE | 2017-08-19 07:30 | DS ---
DISCHARGE SUMMARY FINAL DIAGNOSES: 1. Acute hypoxic respiratory failure secondary to severe acute end-stage is chronic obstructive pulmonary disease exacerbation, BiPAP dependent. 2. Community acquired pneumonia. 3. Leukocytosis secondary to above. 4. History of pulmonary fibrosis. 5. Ongoing nicotine dependence. 6. Paroxysmal atrial fibrillation, rapid ventricular rate. 7. NO CODE, NO CPR, NO VENT. DISCHARGE DISPOSITION: The patient is being discharged in stable condition with guarded prognosis. Outpatient hospice is being arranged. HISTORY OF PRESENT ILLNESS: This 76-year-old woman with past medical history of multiple medical problems admitted with COPD exacerbation and multiple other medical problems. The patient was seen by Dr. Grissom. However, at this time the patient did not improve and the possibility of hospice is offered for the patient. Patient discharged in stable condition with guarded prognosis. DISCHARGE ADVICE AND MEDICATIONS: 1. Diet is cardiac. 2. Activity limited until follow up. 3. Followup with home care. Medications will be as follows: 1. Xanax 0.5 t.i.d. p.r.n. 2. Augmentin 875/125 1 mg p.o. b.i.d. 3. Eliquis 2.5 mg b.i.d. 4. Pulmicort 0.5 b.i.d. 5. aricept 5 mg q.h.s. 6. Perforomist 20 mcg b.i.d. 7. Lasix 20 mg b.i.d. 8. DuoNeb q.i.d. and p.r.n. 9. Ativan 0.2 q.h.s. 10.Magnesium oxide 400 mg daily. 11.Melatonin 3 mg q.h.s. 12.Morphine oral 10 mg p.r.n. 13.Prednisone taper as before as mentioned. 14.Javier-24 300 mg q.h.s. 15.Isoptin 80 mg p.o. t.i.d. 16.Followup with hospice. MMODL / IJN: [id number] / MTDD
== END 2017-08-18 15:57 | disposition hospice, home (50) | DRG 193 ==
LOC: 4MS4W 22:24 → 6SEL 08-14 19:17
PROVIDERS: ADMIT Internal Medicine; ATTEND Internal Medicine
DX: J18.9 Pneumonia, unspecified organism (principal); J96.01 Acute respiratory failure with hypoxia; J44.0 Chronic obstructive pulmonary disease with (acute) lower respiratory infection; J44.1 Chronic obstructive pulmonary disease with (acute) exacerbation; J96.12 Chronic respiratory failure with hypercapnia; I48.0 Paroxysmal atrial fibrillation; J84.10 Pulmonary fibrosis, unspecified; Z99.81 Dependence on supplemental oxygen; I50.9 Heart failure, unspecified; Z66 Do not resuscitate; Z51.5 Encounter for palliative care; F41.9 Anxiety disorder, unspecified; F17.210 Nicotine dependence, cigarettes, uncomplicated; F03.90 Unspecified dementia, unspecified severity, without behavioral disturbance, psychotic disturbance, mood disturbance, and anxiety; Z79.51 Long term (current) use of inhaled steroids; Z79.899 Other long term (current) drug therapy; Z86.11 Personal history of tuberculosis
CPT/HCPCS: 36600; 71045; 71046; 80048; 80053; 83036; 83735; 85025; 85610; 85730; 86003; 86317; 86738; 87040; 87449; 93005; 94640; 94660